=== PATIENT | male | born 1965 | race Caucasian/White ===

== ENCOUNTER 2020-05-24 10:11 | Inpatient (IN) ==
--- NOTE | 2020-05-01 09:02 | PAT Medication Instructions ---
Medication Instructions Date of Service May 01, 2020 Home Medications cyanocobalamin (vitamin B-12) 1,000 mcg IM DIRECTED gabapentin 600 mg PO HS ibuprofen 600 mg PO BID PRN levothyroxine 200 mcg PO HS simvastatin 20 mg PO HS ASK your surgeon for instructions ibuprofen 600 mg PO BID PRN DO NOT take the morning of surgery cyanocobalamin (vitamin B-12) 1,000 mcg IM DIRECTED Take evening before surgery gabapentin 600 mg PO HS levothyroxine 200 mcg PO HS simvastatin 20 mg PO HS Other Notes If you have any questions please call us at [phone] or [phone] or [phone] or [phone]
--- NOTE | 2020-05-02 11:08 | Anesthesiology Consultation ---
Date of Service May 02, 2020 Assessment & Plan (1) Encounter for pre-operative examination: Per PAT assessment on 05/02: Travel screen- [facility] for grocery shopping. Wears mask. No known COVID-19 positive contacts. No current COVID-19 related symptoms. Surgeon arranging preop COVID testing. Awaiting results. Chart Review Chart Review: Acceptable Risk for Surgery and Patient seen in Pre Admission Testing Teaching & Discussion Pre-Anesthesia Teaching/Discussion Notes: Instructed NPO after midnight before surgery,except medications with 15 cc of water. Medication instructions provided according to the [facility] guidelines. History Surgery Operation Date: 05/24/20 07:45 Proposed Procedures p L3-L5 Decompression Fusion, Spinal Cord Monitoring - Patrice Braun, Height/Weight Height: 5 ft 8 in Weight: 119 kg Allergies Allergy/AdvReac Type Severity Reaction Status Date / Time No Known Allergies Allergy Verified 04/24/20 11:53 Medications Home Medications Medication Instructions Recorded Confirmed Last Taken cyanocobalamin (vitamin B-12) 1,000 mcg IM DIRECTED 04/24/20 04/24/20 Unknown gabapentin 600 mg PO HS 04/24/20 04/24/20 Unknown ibuprofen 600 mg PO BID PRN 04/24/20 04/24/20 Unknown levothyroxine 200 mcg PO HS 04/24/20 04/24/20 Unknown simvastatin 20 mg PO HS 04/24/20 04/24/20 Unknown Past Medical History Medical History Anemia no hx blood tranfusions Chronic back pain GERD (gastroesophageal reflux disease) controlled s/p Robe fundoplication/gastric bypass Hyperlipidemia Hypothyroidism Obesity Osteoarthritis Vocal cord dysfunction damage r/t chronic reflux Exercise / Class Metabolic Activity III < 4 Walking/Shop/Light housework Past Family History Family History Mother Diabetes Grandmother Diabetes Daughter Diabetes Past Surgical History Surgical History History of carpal tunnel release R/L History of colonoscopy History of endoscopic sinus surgery History of esophagogastroduodenoscopy (EGD) History of Robe fundoplication History of repair of hiatal hernia History of tooth extraction Hx of gastric bypass Hx of inguinal hernia repair R/L Hx of toe surgery BONE REMOVAL (FOOT/LITTLE TOE) Past Anesthesia History No Hx of Anesthesia Complications and No Family Hx of Anesthesia Complications History of PONV No Hx of PONV and No Hx of Motion Sickness Social History Smoking Status: Never smoker Do You Dip or Chew Tobacco: No Hx Alcohol Use: Yes Alcohol type: wine alcohol intake frequency: a few times a week Hx Substance Use: No substance use type: does not use Review of Systems Patient denies chest pain, shortness of breath, fever, chills, cough, wheezing, palpitations. Physical Exam Vital Signs VITALS BP 160/92 P 64 TEMP 98.7 SP02 95%RA RESP 18 PHYSICAL Full neck and c-spine range of motion. Full TMJ range of motion. TMD 3 finger breaths Mallampati Score 3 Dentition: upper partial Lungs: clear throughout to auscultation Cardiac: regular rate and rhythm, no murmurs noted Spine: normal Carotid arteries: negative bruit Extremities: no edema Testing Laboratory Results 05/02/20 11:41 05/02/20 11:41 PT 10.6 Seconds (9.0-12.0) 05/02/20 11:41 INR 1.0 (0.9-1.1) 05/02/20 11:41 APTT 26.3 Seconds (21.0-31.0) 05/02/20 11:41 Urine Color Yellow 05/02/20 11:41 Urine Appearance Clear (Clear) 05/02/20 11:41 Urine pH 5.5 (4.5-7.5) 05/02/20 11:41 Ur Specific [place] 1.022 (1.000-1.030) 05/02/20 11:41 Urine Protein Negative (Negative) 05/02/20 11:41 Urine Glucose (UA) Negative (Negative) 05/02/20 11:41 Urine Ketones Negative (Negative) 05/02/20 11:41 Urine Nitrite Negative (Negative) 05/02/20 11:41 Ur Leukocyte Esterase Negative (Negative) 05/02/20 11:41 Blood Type A Positive 05/02/20 11:41 Antibody Screen NEGATIVE 05/02/20 11:41 Electrocardiogram Date: 05/02/20 SR with occasional PVC's at 67bpm. unconfirmed report. Chest X-Ray Date: 05/02/20 FINDINGS: The cardiac and mediastinal contours are normal. There is no evidence of focal pulmonary consolidation. There is no evidence of failure. No pleural effusions are visualized.[There is a 4 mm calcified granuloma within the left upper lung zone. IMPRESSION: No active disease in the chest.
--- NOTE | 2020-05-02 12:24 | XRay Report ---
XR chest Pre-admission PA/Lat CLINICAL HISTORY: Preoperative chest COMPARISON STUDY: No previous studies for comparison. FINDINGS: The cardiac and mediastinal contours are normal. There is no evidence of focal pulmonary co nsolidation. There is no evidence of failure. No pleural effusions are visualized.[There is a 4 mm ca lcified granuloma within the left upper lung zone. IMPRESSION: No active disease in the chest. ACT 112: Negative or not required by law. Electronically signed by: Osiel Danielson M.D. 05/02/2020 12:23 PM
[2020-05-02 12:27] LABS: Basophils # (auto) 0.01 K/uL (0-0.2); Basophils % (auto) 0.1 %; Eosinophils # (auto) 0.14 K/uL (0-0.5); Hematocrit (blood only) 45.5 % (42-52); Hemoglobin 14.8 g/dL (14.0-18.0); Immature Granulocytes # (auto) 0.02 K/uL (0.00-0.02); Immature Granulocytes % (auto) 0.3 %; Lymphocytes # (auto) 2.37 K/uL (1.2-3.4); Lymphocytes % (auto) 34.6 %; Mean Corpuscular Hemoglobin 28.9 pg (25-34); Mean Corpuscular Hgb Conc 32.5 g/dL (32-36); Mean Corpuscular Volume 88.9 fL (80-100); Mean Platelet Volume 9.6 fL (7.4-10.4); Monocytes # (auto) 0.54 K/uL (0.11-0.59); Monocytes % (auto) 7.9 %; Neutrophils # (auto) 3.77 K/uL (1.4-6.5); Neutrophils % (auto) 55.1 %; Platelet Count 269 K/uL (130-400); RDW Coefficient of Variation 14.5 % (11.5-14.5); RDW Standard Deviation 47.3 fL (36.4-46.3); Red Blood Count 5.12 M/uL (4.7-6.1); White Blood Count 6.85 K/uL (4.8-10.8)
[2020-05-02 12:28] LABS: Appearance Urine Clear (Clear); Bilirubin Urine Negative (Negative); Blood Urine Negative (Negative); Color Urine Yellow; Glucose Urine UA Negative (Negative); Ketones Urine Negative (Negative); Leukocyte Esterase Urine Negative (Negative); Nitrite Urine Negative (Negative); Protein Urine Negative (Negative); Specific Gravity Urine 1.022 (1.000-1.030); Urobilinogen Urine Negative (Negative); pH Urine 5.5 (4.5-7.5)
[2020-05-02 12:36] LABS: Partial Thromboplastin Ratio 0.9; Partial Thromboplastin Time 26.3 Seconds (21.0-31.0); Prothrombin Time 10.6 Seconds (9.0-12.0)
[2020-05-02 12:51] LABS: BUN Creatinine Ratio 13.8 (10-20); Calcium 9.5 mg/dl (8.5-10.1); Creatinine Clr Calc Pharmacy 104.8 ml/min; Est GFR (African American) 97.3; Est GFR (Non-African American) 83.9; Potassium 4.5 mmol/L (3.5-5.1)
--- NOTE | 2020-05-04 08:37 | Electrocardiogram Report ---
Test Reason : Blood Pressure : / mmHG Vent. Rate : 067 BPM Atrial Rate : 067 BPM P-R Int : 140 ms QRS Dur : 114 ms QT Int : 420 ms P-R-T Axes : 050 060 022 degrees QTc Int : 443 ms Sinus rhythm with occasional Premature ventricular complexes Otherwise normal ECG No previous ECGs available Confirmed by Jalen Hines ([id number]) on 05/04/2020 8:37:25 AM Referred By: Patrice Braun Confirmed By:Jalen Hines
[~2020-05-24 10:11] MED LIST: ACETAMINOPHEN 500 MG TAB PO SCH; CEFAZOLIN 2000MG 2,000 MG/15 ML SYR IV SCH; CeleBREX 200 MG CAP PO SCH; DEXAMETHASONE SOD INJ 4 MG/ML VIAL ONE; GABAPENTIN 900 MG DOSE PO SCH; GLYCOPYRROLATE 0.2 MG/ML VIAL ONE; LIDOCAINE HCL 2% 2 ML VIAL/AMP(20MG/ML) INFIL ONE; LR 15ML/HR IV SCH; MIDAZOLAM HCL 1 MG/ML 2ML VIAL ONE; NEOSTIGMINE METHYLSULFATE 1 MG/ML 10ML VIAL ONE; ONDANSETRON INJ 2 MG/ML 2 ML VIAL ONE; PROPOFOL IV EMULSION 10 MG/ML 20 ML VIAL IV ONE; fentaNYL citrate 100 MCG/2 ML VIAL ONE
--- NOTE | 2020-05-24 11:22 | History & Physical Bridge Note ---
Date of Service May 24, 2020 History & Physical Bridge Note I have examined the patient, reviewed the History & Physical and in the interval since the performance of the History & Physical I have noted the following changes of clinical significance: no changes noted
--- NOTE | 2020-05-24 11:24 | History & Physical Report ---
Date of Service May 24, 2020 Assessment & Plan (1) Neurogenic claudication due to lumbar spinal stenosis: Admission and Anticipated Discharge Date Admission Date: L3 L5 decompression fusion History of Present Illness Chief Complaint: Back and leg pain Primary Care Provider: NO PCP This is a 54-year-old male that presents with worsening back and bilateral leg pain. After failing a course of nonoperative care is here for surgical intervention. Allergies Allergy/AdvReac Type Severity Reaction Status Date / Time No Known Allergies Allergy Verified 05/24/20 10:39 Home Medications Home Medications Medication Instructions Recorded Confirmed Type cyanocobalamin (vitamin B-12) 1,000 mcg IM DIRECTED 04/24/20 05/24/20 History gabapentin 600 mg PO HS 04/24/20 05/24/20 History ibuprofen 600 mg PO BID PRN 04/24/20 05/24/20 History levothyroxine 200 mcg PO HS 04/24/20 05/24/20 History simvastatin 20 mg PO HS 04/24/20 05/24/20 History Past Med/Surg History Medical History Anemia no hx blood tranfusions Chronic back pain GERD (gastroesophageal reflux disease) controlled s/p Robe fundoplication/gastric bypass Hyperlipidemia Hypothyroidism Obesity Osteoarthritis Vocal cord dysfunction damage r/t chronic reflux Surgical History History of carpal tunnel release R/L History of colonoscopy History of endoscopic sinus surgery History of esophagogastroduodenoscopy (EGD) History of Robe fundoplication History of repair of hiatal hernia History of tooth extraction Hx of gastric bypass Hx of inguinal hernia repair R/L Hx of toe surgery BONE REMOVAL (FOOT/LITTLE TOE) Family History Mother Diabetes Grandmother Diabetes Daughter Diabetes Social History Smoking Status: Never smoker Second Hand Exposure: Yes; Do You Dip or Chew Tobacco: No; Tobacco Cessation Education Requested by Patient: No Hx Alcohol Use: Yes Alcohol type: wine Hx Substance Use: No Preferred Language: Icelandic Communication Ability: Effective Scenery Builder Required: No Beliefs That Will Affect Care: None Current Living Situation: Spouse Other Information That Helps Us Care for You: No Feels Safe at Home: Yes Safety Concerns: Feels Safe At This Time Physical Exam Physical Exam: Patient is alert and oriented neurologically intact. Heart regular rate and rhythm. Lungs clear to auscultation. Results & Data ([facility]) Vital Signs (Past 12 Hours) Vital Signs Temp Pulse Resp BP Pulse Ox 05/24/20 10:48 37.1 C 88 18 139/82 96
[2020-05-24] MEDS ORDERED: BACITRACIN INJ 50,000 UNIT VIAL ONE (11:29)
[2020-05-24] MEDS ORDERED: BUPIVACAINE/EPINEPHRINE 0.25% 1:200,000 30 ML VIAL ONE (11:29)
[2020-05-24] MEDS ORDERED: fentaNYL citrate 100 MCG/2 ML VIAL IV PRN (11:30)
[2020-05-24] MEDS ORDERED: ONDANSETRON INJ 2 MG/ML 2 ML VIAL IV PRN ×2 (11:30→15:51)
[2020-05-24] MEDS ORDERED: ePHEDrine sulfate 50 MG/ML AMP IV PRN (11:30)
[2020-05-24] MEDS ORDERED: ATROPINE SULFATE 0.1 MG/ML 10ML SYR IV PRN (11:30)
[2020-05-24] MEDS ORDERED: HYDROmorphone INJ 2 MG/ML SYR/VIAL ONE (12:04)
[2020-05-24] MEDS ORDERED: ROCURONIUM BROMIDE 10 MG/ML 5 ML VIAL IV ONE (13:13)
[2020-05-24] MEDS ORDERED: FLOSEAL HEMOSTATIC MATRIX 10ML TOP ONE (14:05)
--- NOTE | 2020-05-24 14:26 | Operative Report ---
Post Operative Report Pre & Post Diagnosis Operation Date: 05/24/20 11:25 Pre-Op Diagnosis: Spinal Stenosis, Lumbar Region with Neurogenic Claudication Spondylolisthesis L3-4, L4-5. Obesity Post-Op Diagnosis: Same I identified the patient and participated in the time-out.: Yes Procedure Operation Date: 05/24/20 11:25 Actual Procedures #1 lumbar decompression with bilateral medial facetectomies and foraminotomies L2-3, L3-4 and L4-L5. #2 posterior spinal fusion L3-4 L4-5 per #3 placement posterior instrumentation L3-4 L4-5. #4 interbody fusion L3-4 and L4-5. #5 placement of titanium 12 x 26 mm cage at L3-4 and 14 x 26 mm cage at L4-5. #6 placement locally harvested morselized autograft in the posterior gutters. #7 placement infuse collagen sponge, master graft and posterior gutters and ostial amp interbody space. Surgeon Patrice Braun, DO Family Court Counsellor Vidya Cameron Estimated Blood Loss 400 Findings See Below Patient is 5 foot 8 inches tall weighing over 116 kg with a BMI in excess of 39. The patient's body habitus did add significant technical difficulty requiring her deepest retractors and longus instruments in order to perform this procedure. This added at least 50% increase to the operative time. Specimens None Indications This is a 54-year-old male who presents above-mentioned diagnosis after failed extensive course of nonoperative care is here for the above-mentioned procedure. Description of Procedure Patient was met with identified informed consent obtained. Patient was then taken to the operative suite underwent an patient placed in a prone position the Alvarez table on top Krzysztof frame. All bony prominences well-padded eyes inspected to ensure no external pressure placed upon them. This point the lumbar spine was prepped and draped in a sterile fashion. Sharp dissection with the assistance of Bovie cautery was performed down to and exposing the lamina and transverse processes of L3-L4-L5 bilaterally. From a caudal to cephalad fashion complete laminectomy of L4 L3 and postlaminectomy of L2 was performed including bilateral medial facetectomies and foraminotomies addressing severe spinal stenosis. Pedicle screws were then placed in L3-L4 and L5 bilaterally with assistance of fluoroscopy and the proper sized marie placed. By way of a trans-foraminal approach on the right a complete discectomy was performed endplates coated to subcortical bleeding bone and a 14 x 26 mm titanium cage filled osteo-bone graft tapped in position. Then proceeded to L3-[address] of a transforaminal approach on the right discectomy was performed endplates coated to subcortical bleeding bone and a 12 x 26 mm titanium cage filled with osteo-bone graft tapped in position. Rods were then compressed locked into final position bilaterally. The transverse processes of L3-L4-L5 bur to subcortical bleeding bone. Infuse collagen sponge master graft of autograft was placed in the posterior lateral gutters. 15 round HU drain inserted. The incision was then closed with 1 Vicryl the fascia 2-0 Vicryl subcutaneously and 4 Monocryl for final skin closure. Steri-Strip sterile dressings placed. Patient waken taken PACU stable condition. Please note spinal cord monitoring was utilized at the procedure no changes noted. Lastly Vidya Cameron was present at the entire procedure involved in patient positioning complex portions of the surgery and final skin closure. I attest to the content of the Intraoperative Record and any orders documented therein. Any exceptions are noted below.
--- NOTE | 2020-05-24 14:53 | Fluoroscopy Report ---
LUMBAR SPINE, INTRAOPERATIVE FLUOROSCOPY HISTORY: L3 L5 decompression and fusion. FLUOROSCOPY TIME: 18.8 seconds. FINDINGS: Intraoperative fluoroscopy was provided for the lumbar spine. 2 fluoroscopic spot images we re obtained. Posterior decompression and fusion from L3 to L5 with pedicle screws and rods. IMPRESSION: Fluoroscopy provided for a L3-L5 posterior decompression and fusion. ACT 112: Negative or not required by law. Electronically signed by: Albino Menon M.D. 05/24/2020 2:52 PM
[2020-05-24] MEDS ORDERED: fentaNYL citrate 100 MCG/2 ML VIAL ONE (15:09)
[2020-05-24] MEDS ORDERED: FAMOTIDINE 20 MG TAB PO PRN (15:51)
[2020-05-24] MEDS ORDERED: SOD PHOSPHATE/SOD BIPHOSPHATE ENEMA 132 ML BTL PR PRN (15:51)
[2020-05-24] MEDS ORDERED: HYDROmorphone INJ 0.5 MG/0.5 ML SYR IV PRN (15:51)
[2020-05-24] MEDS ORDERED: DO NOT ADMINISTER PNEUMOCOCCAL VACCINE PRN (15:51)
[2020-05-24] MEDS ORDERED: ACETAMINOPHEN 500 MG TAB PO PRN (15:51)
[2020-05-24] MEDS ORDERED: ONDANSETRON 4 MG OD TAB PO PRN (15:51)
[2020-05-24] MEDS ORDERED: NON-FORMULARY MEDICATION (Cyanocobalamin (Vitamin B-12) 1,000 MCG) IM SCH (15:51)
[2020-05-24] MEDS ORDERED: PROMETHAZINE HCL 12.5 MG in SODIUM CHLORIDE 0.9% 50 ML IV PRN (15:51)
[2020-05-24] MEDS ORDERED: ALUMINUM/MAGNESIUM SUSP 30 ML UDC PO PRN (15:51)
[2020-05-24] MEDS ORDERED: METOCLOPRAMIDE HCL INJ 5 MG/ML 2 ML VIAL IV PRN (15:51)
[2020-05-24] MEDS ORDERED: MAGNESIUM HYDROXIDE SUSP 30 ML UDC PO PRN (15:51)
[2020-05-24] MEDS ORDERED: DO NOT ADMINISTER FLU VACCINE PRN (15:51)
[2020-05-24] MEDS ORDERED: TRAMADOL HCL 50 MG TABLET PO PRN (15:51)
[2020-05-24] MEDS ORDERED: bisacodyL 10 MG SUPP PR PRN (15:51)
[2020-05-24] MEDS ORDERED: ACETAMINOPHEN 1,000 MG/100 ML VIAL IV PRN (15:51)
[2020-05-24] MEDS ORDERED: HYDROmorphone INJ 1 MG/ML SYRINGE IV PRN (15:51)
[2020-05-24] MEDS ORDERED: LORazepam 0.5 MG/1 ML VIAL IV PRN (15:51)
[2020-05-24] MEDS ORDERED: NALOXONE HCL 0.4 MG/1 ML VIAL/CARP IV PRN (15:51)
--- NOTE | 2020-05-24 15:53 | Anesthesiology Progress Note ---
Date of Service May 24, 2020 Anesthesia Post Procedure Vital Signs Vital Signs: Temp Pulse Pulse Resp BP Pulse Ox 05/24/20 15:35 88 12 133/89 97 05/24/20 15:25 98.4 F 83 12 131/92 97 05/24/20 15:15 72 12 135/89 96 05/24/20 15:05 82 12 138/94 97 05/24/20 14:55 81 12 160/84 H 97 05/24/20 14:46 98.8 F 94 H 13 158/97 H 96 05/24/20 10:48 98.8 F 88 18 139/82 96 Pain Intensity Left Leg: Pain Intensity: 6 Back: Pain Intensity: 4 Transfer of Care Handoff Completed per policy Notes Mental Status: alert / awake / arousable and participated in evaluation Patient Amnestic to Procedure: Yes Nausea / Vomiting: adequately controlled Pain: adequately controlled Airway Patency, RR, SpO2: stable & adequate BP & HR: stable & adequate Hydration State: stable & adequate Anesthetic Complications: no major complications apparent and Pt Satisfied with anesthetic care
[2020-05-24] MEDS: LACTATED RINGER'S 1,000 ML IV SCH ×2 (16:15→22:35)
[2020-05-24] MEDS: KETOROLAC 30 MG/ML VIAL IV SCH ×2 (17:27→23:17)
[2020-05-24] MEDS: CEFAZOLIN 2000MG 2,000 MG/15 ML SYR IV SCH (17:28)
[2020-05-24] MEDS ORDERED: NON-FORMULARY MEDICATION (Diphenhydramine-Acetaminophen [Tylenol Pm Extra Strength] 1 TAB) PO SCH (21:00)
[2020-05-24] MEDS: GABAPENTIN 300 MG CAP PO SCH (21:05)
[2020-05-24] MEDS: LEVOTHYROXINE SODIUM 200 MCG TABLET PO SCH (21:05)
[2020-05-24] MEDS: DOCUSATE SODIUM/SENNA 50/8.6MG TAB PO SCH (21:05)
[2020-05-24] MEDS: SIMVASTATIN 20 MG TAB PO SCH (21:05)
[2020-05-24] MEDS: LORazepam 0.5 MG TAB PO PRN (22:38)
[2020-05-25] MEDS: CEFAZOLIN 2000MG 2,000 MG/15 ML SYR IV SCH (02:20)
[2020-05-25] MEDS: KETOROLAC 30 MG/ML VIAL IV SCH ×2 (05:50→11:31)
[2020-05-25] MEDS: POLYETHYLENE (MIRALAX) 17 GM PACK PO SCH ×4 (05:50→22:59)
[2020-05-25 05:56] LABS: Basophils # (auto) 0.01 K/uL (0-0.2); Basophils % (auto) 0.1 %; Eosinophils # (auto) 0.01 K/uL (0-0.5); Eosinophils % (auto) 0.1 %; Hematocrit (blood only) 37.9 % (42-52); Hemoglobin 12.1 g/dL (14.0-18.0); Immature Granulocytes # (auto) 0.03 K/uL (0.00-0.02); Immature Granulocytes % (auto) 0.2 %; Lymphocytes # (auto) 1.51 K/uL (1.2-3.4); Lymphocytes % (auto) 10.7 %; Mean Corpuscular Hemoglobin 28.7 pg (25-34); Mean Corpuscular Hgb Conc 31.9 g/dL (32-36); Mean Platelet Volume 9.1 fL (7.4-10.4); Monocytes # (auto) 1.12 K/uL (0.11-0.59); Monocytes % (auto) 7.9 %; Neutrophils # (auto) 11.46 K/uL (1.4-6.5); Platelet Count 248 K/uL (130-400); RDW Coefficient of Variation 13.8 % (11.5-14.5); RDW Standard Deviation 45.1 fL (36.4-46.3); Red Blood Count 4.21 M/uL (4.7-6.1); White Blood Count 14.14 K/uL (4.8-10.8)
[2020-05-25] MEDS: LACTATED RINGER'S 1,000 ML IV SCH (06:28)
[2020-05-25 06:37] LABS: BUN Creatinine Ratio 15.4 (10-20); Calcium 8.7 mg/dl (8.5-10.1); Creatinine Clr Calc Pharmacy 107.7 ml/min; Est GFR (African American) 102.2; Est GFR (Non-African American) 88.1; Potassium 4.5 mmol/L (3.5-5.1)
--- NOTE | 2020-05-25 17:45 | Orthopedic Progress Note ---
Date of Service May 25, 2020 Assessment & Plan (1) Neurogenic claudication due to lumbar spinal stenosis: Admission and Anticipated Discharge Date Admission Date: May 24, 2020 This time we will continue physical therapy monitor his HU output anticipate dis charge home in the next few days. Subjective Back pain controlled leg pain improved. Physical Exam Physical Exam: Patient is good strength testing appears comfortable. Results & Data ([facility]) Vital Signs (Past 12 Hours) Vital Signs Temp Pulse Resp BP BP Pulse Ox 05/25/20 15:25 36.9 C 79 20 138/76 97 05/25/20 07:39 36.9 C 85 17 132/74 95
[2020-05-25] MEDS: OXYCODONE HCL IR 5 MG TAB (IMMEDIATE RELEASE) PO PRN (19:36)
[2020-05-25] MEDS: GABAPENTIN 300 MG CAP PO SCH (21:25)
[2020-05-25] MEDS: LEVOTHYROXINE SODIUM 200 MCG TABLET PO SCH (21:25)
[2020-05-25] MEDS: DOCUSATE SODIUM/SENNA 50/8.6MG TAB PO SCH (21:26)
[2020-05-25] MEDS: SIMVASTATIN 20 MG TAB PO SCH (21:26)
[2020-05-25] MEDS: LORazepam 0.5 MG TAB PO PRN (23:03)
[2020-05-26] MEDS: OXYCODONE HCL IR 5 MG TAB (IMMEDIATE RELEASE) PO PRN ×4 (03:27→19:59)
[2020-05-26] MEDS: DEXAMETHASONE SOD PHOSPHATE 8 MG in SYRINGE 0 ML IV SCH (08:05)
--- NOTE | 2020-05-26 13:23 | Orthopedic Progress Note ---
Date of Service May 26, 2020 Assessment & Plan (1) Neurogenic claudication due to lumbar spinal stenosis: Admission and Anticipated Discharge Date Admission Date: May 24, 2020 This time we will continue physical therapy monitor his HU output hopefully disc harge home tomorrow. Subjective Back pain controlled leg pain improved Physical Exam Physical Exam: Patient has good strength testing appears comfortable. Results & Data ([facility]) Vital Signs (Past 12 Hours) Vital Signs Temp Pulse Resp BP Pulse Ox 05/26/20 06:34 37.3 C 78 14 104/68 95
[2020-05-26] MEDS: DOCUSATE SODIUM/SENNA 50/8.6MG TAB PO SCH (19:59)
[2020-05-26] MEDS: LEVOTHYROXINE SODIUM 200 MCG TABLET PO SCH (20:00)
[2020-05-26] MEDS: GABAPENTIN 300 MG CAP PO SCH (20:00)
[2020-05-26] MEDS: SIMVASTATIN 20 MG TAB PO SCH (20:00)
[2020-05-26] MEDS: LORazepam 0.5 MG TAB PO PRN (21:43)
[2020-05-27] MEDS: OXYCODONE HCL IR 5 MG TAB (IMMEDIATE RELEASE) PO PRN ×2 (02:57→10:23)
[2020-05-27] MEDS: DEXAMETHASONE SOD PHOSPHATE 8 MG in SYRINGE 0 ML IV SCH (09:01)
--- NOTE | 2020-05-27 09:51 | Discharge Summary ---
Date of Service May 27, 2020 Admission HPI Per Admitting Provider This is a 54-year-old male that presents with worsening back and bilateral leg pain. After failing a course of nonoperative care is here for surgical intervention. Principal Diagnosis Lumbar spinal stenosis with neurogenic claudication Discharge Data Allergies Allergy/AdvReac Type Severity Reaction Status Date / Time No Known Allergies Allergy Verified 05/24/20 10:39 Consultations 05/24/20 15:51 Consult Case Management - Discharge Planning Routine Procedures Performed Operation Date: 05/24/20 11:25 Actual Procedures p L3-L5 Decompression Fusion, Spinal Cord Monitoring, Application of Bone Morphogenetic Protein and Allograft, Placement of Interbody at L3-L4, L4-L5 - Patrice Braun DO Ordered Studies 05/24/20 11:25 FL fluoroscopy <1hr Routine FL lumbar spine 2-3V Routine Hospital Course (1) Neurogenic claudication due to lumbar spinal stenosis: Patient underwent multilevel lumbar decompression fusion tolerated this well was taken to orthopedic for possibly. Postop day 1 he was up and ambulating rest the postop day #2 on postop day #3 HU drain was decreasing pain well controlled. Excellent strength testing. Subsequently discharged home. Discharge orders and instructions from the chart for further review. Total Time Total Time Spent Total Time Spent (In Minutes): 20 minutes Discharge Plan Discharge Items Patient Disposition: Home - Self-Care Reason For Visit: Spinal Stenosis, Lumbar Region with Neurogenic Cla Discharge Diagnosis: Lumbar spinal stenosis with neurogenic claudication Activity: As commented below Non-emergency contact: Primary Care Provider Call non-emergency contact if: you have any medication questions Follow-up/Referrals: PCP,NO [Primary Care Provider] - Diet: Regular Addtl Attending Provider Instructions: ACTIVITY RECOMMENDATIONS: SELF CARE INSTRUCTIONS AFTER THORACIC/LUMBAR FUSIONS 1. You may walk to your tolerance. It is good exercise for your legs and back. Expect some back and intermittent leg aches and pains. 2. You may perform "counter-top" level activities (make a sandwich, elder with a project, etc.). 3. No bending or lifting of more than 10 pounds or back twisting of any nature (roll like a log when turning in bed). 4. You may ride in a car for 20-30 minutes at a time. No driving until after your first visit with your doctor. 5. Frequent changes of position and restricting sitting to 30 minutes at a time will help limit the amount of back spasms and stiffness you may experience. 6. You may discontinue the use of ambulatory aids (cane, crutches, etc.) once your strength and confidence allow. 7. You may mannequin maker the shower and let water strike your incision when you arrive home at least once daily. Do not take a tub bath, sit in a hot tub or go into a swimming pool until after your first recheck in the office. SPECIAL CARE INSTRUCTIONS: VERY IMPORTANT TO READ AND REVIEW A. Your surgical incision has been closed with a cosmetic suture under the skin that will dissolve in about 6 weeks. In 14 days, you can use a pair of clean scissors and cut the suture that is left outside of the skin at the ends of your incision. 1. The small skin tapes can be removed 7 days after surgery if they have not fallen off by that point. 2. You may keep the wound open to air as much as possible to promote healing after post-op day number 5 unless told otherwise by your doctor. 3. If you think the wound looks like it is becoming infected (redness or worsening drainage) and/or you are experiencing fever, chill or worsening back pain and muscle spasms, contact the office so that we may evaluate you as soon as possible. B. Complications are uncommon, but please contact us if you have any signs or symptoms of: 1. wound infection (fever higher than 102.5 degrees F, redness, separation of wound, drainage, or increasing pain from the incision) 2. blood clots in legs (pain, swelling, redness and warmth in legs) 3. urinary tract infection (fever higher than 102.5 degrees F, burning upon urination or increased frequency of urination) 4. nerve problems (inability to walk on your toes or heels, numbness, loss of bowel or bladder control) 5. any other symptoms that concern you C. Please call the office at if you have any concerns or questions about your operation or recovery. D. No smoking! Smoking drastically decreases the chance of a solid fusion. E. Do not take any anti-inflammatory medications (Indocin, Advil, Motrin, Aspirin, Naprosyn, etc.) as these may inhibit the chance of a solid fusion. Tylenol is okay to take for pain. MANAGING PAIN AFTER SPINAL SURGERY 1. Narcotic medication is intended for short-term use and will be provided for surgical pain. Surgical pain usually lasts for a period of 4-6 weeks. Narcotic medication includes Percocet, Vicodin, Darvocet, Tylenol #3 or Lortab. 2. Longer-term pain is more appropriately treated with non-narcotic medication such as Tylenol ES. 3. Muscle spasm is not appropriately treated with narcotics. Muscle relaxers such as Soma, Flexeril or Skelaxin can be used along with Tylenol ES. 4. Remember that we all live with some "aches and pains". This is not unusual or uncommon after an injury or as we get older. a. Back pain is expected and may include muscle spasms for 4 to 6 weeks after surgery. The pain should gradually improve. If the pain worsens for no apparent reason, please contact the office. b. Intermittent leg pain may also be experienced and should not be concerned about unless it worsens for no apparent reason. If so, please contact the office. 5. We will provide appropriate medication within the normal guidelines of their prescribed use. We will also be very cautious and aware of potential abuse and extended duration of patients' medication needs. a. Pain medications are for your comfort and to assist with sleep and rest so that the tissue can heal. They are not provided in order to return to normal activity and should not be used through the day. To do so or worsening pain at night can result from ongoing tissue damage and development of tolerance to the prescribed medicine. 6. Please allow 2-3 days to process refills. Prescriptions will not be mailed but must be picked up at the office. FOLLOW UP VISIT: Keep your scheduled follow-up appointment. Any questions, please call the office at . Pending Studies at Discharge: No Stand-Alone Forms: [employer], Smoking Cessation Medications and DC Order Prescriptions: New tramadol 50 mg tablet 50 mg PO Q6H PRN (Reason: pain, moderate) Qty: 20 RF: 0 oxycodone 5 mg tablet 5 mg PO Q6H PRN (Reason: pain, severe) Qty: 20 RF: 0 Continued simvastatin 20 mg Tablet 20 mg PO HS RF: 0 gabapentin 300 mg Capsule 600 mg PO HS RF: 0 levothyroxine 200 mcg Tablet 200 mcg PO HS RF: 0 cyanocobalamin (vitamin B-12) 1,000 mcg/mL Kit 1,000 mcg IM DIRECTED RF: 0 diphenhydramine-acetaminophen [Tylenol PM Extra Strength] 25-500 mg Tablet 1 tab PO HS RF: 0 Discontinued ibuprofen 600 mg Tablet 600 mg PO BID PRN (Reason: Pain) RF: 0 Discharge Orders: Discharge Order (Routine); Ordered 05/27/20 Ordered By: Patrice Braun Admission Data Admit Date/Time: 05/24/20 14:51 Attending Provider: Patrice Braun Admit Provider: Patrice Braun Primary Care Provider: PCP,HERIBERTO
== END 2020-05-27 13:28 | disposition home or self-care (01) | DRG 455 ==
LOC: ASU 10:11 → 3E 14:51

== ENCOUNTER 2021-04-04 06:15 | Observation (INO) ==
--- NOTE | 2021-03-09 13:34 | PAT Medication Instructions ---
Medication Instructions Date of Service March 09, 2021 Home Medications cyanocobalamin (vitamin B-12) 1,000 mcg IM DIRECTED gabapentin 600 mg PO HS PRN levothyroxine 200 mcg PO HS simvastatin 20 mg PO HS diphenhydramine-acetaminophen [Tylenol PM Extra Strength] 1 tab PO HS amlodipine 10 mg PO QAM cholecalciferol (vitamin D3) [Vitamin D3] 50 mcg PO HS Continue as directed cyanocobalamin (vitamin B-12) 1,000 mcg IM DIRECTED Take morning of surgery With a small sip of water, OTHERWISE NOTHING TO EAT OR DRINK AFTER MIDNIGHT: amlodipine 10 mg PO QAM Take evening before surgery gabapentin 600 mg PO HS PRN (if needed) levothyroxine 200 mcg PO HS simvastatin 20 mg PO HS diphenhydramine-acetaminophen [Tylenol PM Extra Strength] 1 tab PO HS cholecalciferol [Vitamin D3] 50 mcg PO HS Other Notes If you have any questions please call us at [phone] or [phone] or [phone] or [phone]
--- NOTE | 2021-03-12 11:18 | Anesthesiology Consultation ---
Date of Service March 12, 2021 Assessment & Plan (1) Encounter for pre-operative examination: COVID Status: As of 03/12 assessment, patient denies travel to endemic area, known exposure/sick contacts, or symptoms of COVID19. Patient advised to adhere to social distancing guidelines, wear a mask in public and avoid large crowds or unnecessary travel in the 2 weeks leading up to surgery. Traveling to [place] to [facility] with family, will return on 03/24. Preoperative COVID19 testing to be completed prior to surgery per surgeon's arrangements. Patient encouraged to be extra cautious/conscientious with COVID precautions between COVID testing and surgery. Chart Review Chart Review: Acceptable Risk for Surgery and Patient seen in Pre Admission Testing Teaching & Discussion Instructed NPO after midnight before surgery, except medications with 15 cc of water. Medication instructions provided according to the PAT guidelines. History Surgery Operation Date: 04/04/21 10:05 Proposed Procedures p C5-C7 Anterior Cervical Discectomy and Fusion, Spinal Cord Monitoring - Patrice Braun, Height/Weight Height: 5 ft 8 in Weight: 115.7 kg Allergies Allergy/AdvReac Type Severity Reaction Status Date / Time No Known Allergies Allergy Verified 03/07/21 12:59 Medications Home Medications Medication Instructions Recorded Confirmed Last Taken cyanocobalamin (vitamin B-12) 1,000 mcg IM DIRECTED 04/24/20 03/07/21 Unknown gabapentin 600 mg PO HS PRN 04/24/20 03/07/21 05/23/20 20:00 levothyroxine 200 mcg PO HS 04/24/20 03/07/21 05/23/20 22:00 simvastatin 20 mg PO HS 04/24/20 03/07/21 05/23/20 22:00 diphenhydramine-acetaminophen 1 tab PO HS 05/24/20 03/07/21 05/23/20 22:00 [Tylenol PM Extra Strength] amlodipine 10 mg PO QAM 03/07/21 03/07/21 Unknown cholecalciferol (vitamin D3) 50 mcg PO HS 03/07/21 03/07/21 Unknown [Vitamin D3] Past Medical History Medical History Anemia Chronic back pain GERD (gastroesophageal reflux disease) History of COVID-19 09/09/21 (SYMPTOMS>CHILLS/HEADACHE/NAUSEA/ALL OVER BODY ACHES). Had persistent episodes of 'heart racing' for a few weeks after COVID, but all symptoms have now resolved. Hyperlipidemia Hypertension Hypothyroidism Obesity Osteoarthritis Racing heart beat Pt had issues with heart racing/palpitations for a while after having COVID in 09/2020. Was seen by cardio for echo/Holter, workup unremarkable and it has not had symptoms for past two months Vocal cord dysfunction damage r/t chronic reflux Exercise / Class Metabolic Activity II 4-5 Yardwork/Stairs/Walk up hill (Denies CP or SOB with 1 FOS) Past Family History Family History Mother Diabetes Family history of diabetes mellitus Grandmother Diabetes Daughter Diabetes Family history of diabetes mellitus Grandmother (Maternal) Family history of diabetes mellitus Other No family history of adverse response to anesthesia Past Surgical History Surgical History Fusion of spine LUMBAR History of carpal tunnel release RT/LEFT History of colonoscopy History of endoscopic sinus surgery History of esophagogastroduodenoscopy (EGD) History of Robe fundoplication History of repair of hiatal hernia History of tooth extraction Hx of gastric bypass Hx of inguinal hernia repair RT/LEFT Hx of toe surgery BONE REMOVAL (RT FOOT/LITTLE TOE) Past Anesthesia History No Hx of Anesthesia Complications and No Family Hx of Anesthesia Complications History of PONV No Hx of PONV and Hx of Motion Sickness (only if reading in the car) Social History Smoking Status: Never smoker Do You Dip or Chew Tobacco: No Hx Alcohol Use: Yes Alcohol type: wine alcohol intake frequency: a few times a week substance use type: does not use Review of Systems Pt denies any recent chest pain, shortness of breath, palpitations, cough, fever, URI, or uncontrolled acid reflux. Physical Exam Vital Signs BP: 132/84 P: 69bpm SPO2: 97% RA T: 97.9 F R: 16 ENMT Mouth: + dentures (partial upper denture) and + macroglossia; no chipped teeth and no loose teeth Thyromental Distance: > or= 3.5 Finger Breadths Mallampati Class: IV *hoarse voice Neck + thick neck; neck extension not limited Band-aid on L side of neck. Pt reports scratched neck on a briar while weeding. Respiratory normal respiratory effort, lungs clear to auscultation Cardiovascular Rate/Rhythm: regular rate and regular rhythm (with rare ectopic beat) Vessels: no carotid bruit Extremities: no edema Lab Results Anesthesia Preop Results Results Anesthesia Widget: WBC 6.99 K/uL (4.8-10.8) 03/12/21 Hgb 12.3 g/dL (14.0-18.0) L 03/12/21 Hct 39.8 % (42-52) L 03/12/21 Plt 361 K/uL (130-400) 03/12/21 Na 140 mmol/L (136-145) 03/12/21 K 3.9 mmol/L (3.5-5.1) 03/12/21 Cl 109 mmol/L (98-107) H 03/12/21 CO2 23 mmol/L (21-32) 03/12/21 BUN 13 mg/dl (7-18) 03/12/21 Creat 0.86 mg/dl (0.6-1.4) 03/12/21 Glucose Level 92 mg/dl (70-99) 03/12/21 PT 9.9 Seconds (9.0-12.0) 03/12/21 PTT 25.2 Seconds (21.0-31.0) 03/12/21 INR 1.0 (0.9-1.1) 03/12/21 Urine Color Yellow 03/12/21 Urine Appearance Clear (Clear) 03/12/21 Urine pH 5.0 (4.5-7.5) 03/12/21 Urine Specific [place] 1.024 (1.000-1.030) 03/12/21 Urine Protein Negative (Negative) 03/12/21 Urine Glucose (UA) Negative (Negative) 03/12/21 Urine Ketones Negative (Negative) 03/12/21 Urine Blood Negative (Negative) 03/12/21 Urine Nitrite Negative (Negative) 03/12/21 Urine Bilirubin Negative (Negative) 03/12/21 Urine Urobilinogen Negative (Negative) 03/12/21 Urine Leukocyte Esterase Negative (Negative) 03/12/21 Blood Type A Positive 03/12/21 Antibody Screen NEGATIVE 03/12/21 Testing Electrocardiogram Date: 05/02/20 Sinus rhythm at 67 bpm with occasional PVCs. Chest X-Ray Date: 05/02/20 Findings: + NAD Echocardiogram Date: 11/13/20 EF: 60% Left ventricular size is normal with normal wall thickness. Normal LV systolic function. Normal contractility of the wall segments. Normal diastolic function and normal left atrial pressure. Normal atria size. Normal RV size and function. Mild tricuspid regurgitation and mild pulmonic regurgitation. No pericardial effusion. Normal PA systolic pressure. The aortic root is normal. The ascending aorta is normal.
[~2021-04-04 06:15] MED LIST changes: -ACETAMINOPHEN 500 MG TAB PO SCH; -CEFAZOLIN 2000MG 2,000 MG/15 ML SYR IV SCH; -CeleBREX 200 MG CAP PO SCH; -DEXAMETHASONE SOD INJ 4 MG/ML VIAL ONE; -GABAPENTIN 900 MG DOSE PO SCH; -GLYCOPYRROLATE 0.2 MG/ML VIAL ONE; -LIDOCAINE HCL 2% 2 ML VIAL/AMP(20MG/ML) INFIL ONE; -MIDAZOLAM HCL 1 MG/ML 2ML VIAL ONE; -NEOSTIGMINE METHYLSULFATE 1 MG/ML 10ML VIAL ONE; -ONDANSETRON INJ 2 MG/ML 2 ML VIAL ONE; -PROPOFOL IV EMULSION 10 MG/ML 20 ML VIAL IV ONE; +ceFAZolin 2000MG 2,000 MG/15 ML SYR IV SCH; -fentaNYL citrate 100 MCG/2 ML VIAL ONE
[2021-04-04] MEDS: ACETAMINOPHEN 500 MG TAB PO SCH (06:48)
[2021-04-04] MEDS: GABAPENTIN 600 MG DOSE PO SCH (06:48)
[2021-04-04] MEDS: CeleBREX 200 MG CAP PO SCH (06:48)
[2021-04-04] MEDS ORDERED: ONDANSETRON INJ 2 MG/ML 2 ML VIAL ONE (06:57)
[2021-04-04] MEDS ORDERED: DEXAMETHASONE SOD INJ 4 MG/ML VIAL ONE (06:57)
[2021-04-04] MEDS ORDERED: LIDOCAINE 2% 2 ML VIAL/AMP(20MG/ML) INFIL ONE (06:57)
[2021-04-04] MEDS ORDERED: PROPOFOL IV EMULSION 10 MG/ML 20 ML VIAL IV ONE ×4 (06:57→09:20)
[2021-04-04] MEDS ORDERED: MIDAZOLAM HCL 1 MG/ML 2ML VIAL ONE (06:58)
[2021-04-04] MEDS ORDERED: fentaNYL citrate 100 MCG/2 ML VIAL ONE (06:58)
[2021-04-04] MEDS ORDERED: ePHEDrine sulfate 50 MG/ML AMP IV PRN (07:20)
[2021-04-04] MEDS ORDERED: PROMETHAZINE HCL 6.25 MG in SODIUM CHLORIDE 0.9% 50 ML IV PRN (07:20)
[2021-04-04] MEDS ORDERED: fentaNYL citrate 100 MCG/2 ML VIAL IV PRN (07:20)
[2021-04-04] MEDS ORDERED: ONDANSETRON INJ 2 MG/ML 2 ML VIAL IV PRN ×2 (07:20→11:14)
[2021-04-04] MEDS ORDERED: ATROPINE SULFATE 0.1 MG/ML 10ML SYR IV PRN (07:20)
[2021-04-04] MEDS ORDERED: HYDROmorphone INJ 2 MG/ML SYR/VIAL IV PRN (07:20)
--- NOTE | 2021-04-04 07:27 | History & Physical Bridge Note ---
Date of Service April 04, 2021 History & Physical Bridge Note I have examined the patient, reviewed the History & Physical and in the interval since the performance of the History & Physical I have noted the following changes of clinical significance: no changes noted
--- NOTE | 2021-04-04 07:28 | History & Physical Report ---
Date of Service April 04, 2021 Assessment & Plan (1) Cervical stenosis of spinal canal: Admission and Anticipated Discharge Date Admission Date: C5-C7 anterior cervical discectomy and fusion History of Present Illness Chief Complaint: Neck and arm pain Primary Care Provider: NO PCP This is a 55-year-old male presents with chronic persistent neck and arm pain after failed extensive course of nonoperative care is here for surgical invention. Allergies Allergy/AdvReac Type Severity Reaction Status Date / Time No Known Allergies Allergy Verified 03/07/21 12:59 Home Medications Medication Instructions Recorded Confirmed Type cyanocobalamin (vitamin B-12) 1,000 mcg IM DIRECTED 04/24/20 04/04/21 History gabapentin 600 mg PO HS PRN 04/24/20 04/04/21 History levothyroxine 200 mcg PO HS 04/24/20 04/04/21 History simvastatin 20 mg PO HS 04/24/20 04/04/21 History diphenhydramine-acetaminophen 1 tab PO HS 05/24/20 04/04/21 History [Tylenol PM Extra Strength] amlodipine 10 mg PO QAM 03/07/21 04/04/21 History cholecalciferol (vitamin D3) 50 mcg PO HS 03/07/21 04/04/21 History [Vitamin D3] Past Med/Surg History Medical History Anemia Chronic back pain GERD (gastroesophageal reflux disease) History of COVID-19 09/09/21 (SYMPTOMS>CHILLS/HEADACHE/NAUSEA/ALL OVER BODY ACHES). Had persistent episodes of 'heart racing' for a few weeks after COVID, but all symptoms have now resolved. Hyperlipidemia Hypertension Hypothyroidism Obesity Osteoarthritis Racing heart beat Pt had issues with heart racing/palpitations for a while after having COVID in 09/2020. Was seen by cardio for echo/Holter, workup unremarkable and it has not had symptoms for past two months Vocal cord dysfunction damage r/t chronic reflux Surgical History Fusion of spine LUMBAR History of carpal tunnel release RT/LEFT History of colonoscopy History of endoscopic sinus surgery History of esophagogastroduodenoscopy (EGD) History of Robe fundoplication History of repair of hiatal hernia History of tooth extraction Hx of gastric bypass Hx of inguinal hernia repair RT/LEFT Hx of toe surgery BONE REMOVAL (RT FOOT/LITTLE TOE) Family History Mother Diabetes Family history of diabetes mellitus Grandmother Diabetes Daughter Diabetes Family history of diabetes mellitus Grandmother (Maternal) Family history of diabetes mellitus Other No family history of adverse response to anesthesia Social History Smoking Status: Never smoker Second Hand Exposure: Yes ( A CHILD); Do You Dip or Chew Tobacco: No; Hx Alcohol Use: Yes Alcohol type: wine Preferred Language: [place]an Communication Ability: Effective Laborer Hoisting Required: No Beliefs That Will Affect Care: None marital status: Current Living Situation: Family Feels Safe at Home: Yes Safety Concerns: Feels Safe At This Time Assistive Devices: Glasses Assistive Devices Comment: PARTIAL UPPER PLATE Physical Exam Physical Exam: Patient is alert and oriented Heart regular in rhythm Lungs clear to auscultation Results & Data ([facility]) Vital Signs (Past 12 Hours) Vital Signs Temp Pulse Resp BP Pulse Ox 04/04/21 06:55 37.0 C 71 20 171/95 H 98
[2021-04-04] MEDS ORDERED: HYDROmorphone INJ 2 MG/ML SYR/VIAL ONE (08:20)
[2021-04-04] MEDS ORDERED: SUCCINYLCHOLINE 100MG/5ML SYR IV ONE (08:46)
[2021-04-04] MEDS ORDERED: ROCURONIUM BROMIDE 10 MG/ML 5 ML VIAL IV ONE (08:46)
[2021-04-04] MEDS ORDERED: PHENYLEPHRINE 100MCG/ML 5ML SYR ONE (09:16)
[2021-04-04] MEDS ORDERED: NEOSTIGMINE METHYLSULFATE 1 MG/ML 10ML VIAL ONE (09:19)
[2021-04-04] MEDS ORDERED: GLYCOPYRROLATE 0.2 MG/ML VIAL ONE (09:19)
--- NOTE | 2021-04-04 09:31 | Operative Report ---
Post Operative Report Pre & Post Diagnosis Operation Date: 04/04/21 07:45 Pre-Op Diagnosis: Cervical Stenosis of Spinal Canal Post-Op Diagnosis: Cervical Stenosis of Spinal Canal I identified the patient and participated in the time-out.: Yes Procedure Operation Date: 04/04/21 07:45 Actual Procedures #1 anterior cervical discectomy with bilateral foraminotomies C5-6 and C6-C7. #2 anterior cervical arthrodesis C5-6 and C6-7. #3 placement of 9 mm spiral cage filled with I factor at C5-6 and 10 mm at C6-C7. #4 application of renee plate and screws across C5-6 C6-7. Surgeon Patrice Braun, DO Tack Welder Vidya Cameron Estimated Blood Loss 10 Findings See Below Patient is 5 foot 8 inches tall weighing over 115 kg with a BMI in excess of 38. The patient's body habitus did create significant technical difficulty requiring her deeper retractors and longer instruments in order to perform his procedure. This had at least 50% increase to the operative time. Specimens None Indications This is a 55-year-old male who presents above-mentioned diagnosis after failing course of nonoperative care is here for the above-mentioned procedure. Description of Procedure Patient was met with identified informed consent obtained. Patient was then taken to the operative suite underwent a patient placed in spine position Alvarez table head Cantrell mill operator head. All bony prominences well-padded eyes inspected to ensure no external pressure placed upon the. This point the anterior cervical spine was prepped and draped in a sterile fashion. The assistance of fluoroscopy identified the C6 vertebral body and a transverse incision was placed along the right anterior aspect of the cervical spinal lines region. Sharp dissection with the assistance of bipolar electrocautery performed down to and exposing the anterior cervical spine from C5-C7. Several [address]. Then performed a complete discectomy of C5-C6 out to the uncovertebral's bilaterally. [place] distracting pins were lysed to assist in visualization. Removed all posterior annular fibers longitudinal ligament bilateral foraminotomies performed. Endplates were then burred to subcortical bleeding bone and 9 mm spiral cage filled I factor tapped in position. Then proceeded to C6-C7. Again complete discectomy performed out to the uncovertebral joints bilaterally. [place] distracting pins again utilized. Removed all posterior annular fibers longitudinal ligament bilateral foraminotomies performed. Endplates burred to subcortical being bone and a 10 mm spiral cage filled with I factor tapped in position. Distracting apparatus was removed all anterior osteophytes burred to a smooth cortical surface and a 5 complete screws applied with the assistance of fluoroscopy. The incision was then copiously irrigated explored to ensure no damage to surrounding structures remaining bleeding. 10 round HU drain inserted. The incision was then closed with 2 Vicryl in the fascia and 4 Monocryl for final skin closure. Steri-Strip sterile dressings placed. Patient will continue PACU stable condition. Please note spinal cord monitoring was utilized at the procedure no changes noted. Lastly Vidya Cameron was present at the entire surgery involved the patient positioning complex portions of the surgery and final skin closure. I attest to the content of the Intraoperative Record and any orders documented therein. Any exceptions are noted below.
[2021-04-04] MEDS ORDERED: FLOSEAL HEMOSTATIC MATRIX 10ML TOP ONE (09:33)
--- NOTE | 2021-04-04 09:45 | Fluoroscopy Report ---
FL cervical 2-3V CLINICAL HISTORY: C5-C7 ACDF COMPARISON STUDY: None. FLUOROSCOPY TIME: 13 seconds. FLUOROSCOPIC IMAGES: 3 FINDINGS: Fluoroscopy was provided during C5-C7 anterior discectomy and fusion. Hardware is intact. S ponge marker noted on the first 2 images is not evident on the final image obtained at 9:34 AM. Endot [place] tube is partially visualized. IMPRESSION: Fluoroscopy provided during C5-C7 anterior discectomy and fusion. ACT 112: Negative or not required by law. Electronically signed by: Russ Menard M.D. 04/04/2021 9:43 AM
[2021-04-04] MEDS ORDERED: traMADol HCL 50 MG TABLET PO PRN (11:14)
[2021-04-04] MEDS ORDERED: FAMOTIDINE 20 MG TAB PO PRN (11:14)
[2021-04-04] MEDS ORDERED: HYDROmorphone INJ 1 MG/ML SYRINGE IV PRN (11:14)
[2021-04-04] MEDS ORDERED: oxyCODONE HCL IR 5 MG TAB (IMMEDIATE RELEASE) PO PRN (11:14)
[2021-04-04] MEDS ORDERED: GABAPENTIN 300 MG CAP PO PRN (11:14)
[2021-04-04] MEDS ORDERED: ACETAMINOPHEN 500 MG TAB PO PRN (11:14)
[2021-04-04] MEDS ORDERED: METOCLOPRAMIDE HCL INJ 5 MG/ML 2 ML VIAL IV PRN (11:14)
[2021-04-04] MEDS ORDERED: hydrOXYzine HCl 25 MG TAB PO PRN (11:14)
[2021-04-04] MEDS ORDERED: ALUMINUM/MAGNESIUM SUSP 30 ML UDC PO PRN (11:14)
[2021-04-04] MEDS ORDERED: RACEPINEPHRINE 2.25% NEBU SOLN 0.5 ML VIAL INH PRN (11:14)
[2021-04-04] MEDS ORDERED: dexAMETHasone 8 MG in SYRINGE 0 ML IV PRN (11:14)
[2021-04-04] MEDS ORDERED: PROMETHAZINE HCL 12.5 MG in SODIUM CHLORIDE 0.9% 50 ML IV PRN (11:14)
[2021-04-04] MEDS ORDERED: diphenhydrAMINE Capsule 25 MG CAP PO PRN (11:14)
[2021-04-04] MEDS ORDERED: DO NOT ADMINISTER PNEUMOCOCCAL VACCINE PRN (11:14)
[2021-04-04] MEDS ORDERED: SOD PHOSPHATE/SOD BIPHOSPHATE ENEMA 132 ML BTL PR PRN (11:14)
[2021-04-04] MEDS ORDERED: DO NOT ADMINISTER FLU VACCINE PRN (11:14)
[2021-04-04] MEDS ORDERED: NALOXONE HCL 0.4 MG/1 ML VIAL/CARP IV PRN (11:14)
[2021-04-04] MEDS ORDERED: HYDROmorphone INJ 0.5 MG/0.5 ML SYR IV PRN (11:14)
[2021-04-04] MEDS ORDERED: MAGNESIUM HYDROXIDE SUSP 30 ML UDC PO PRN (11:14)
[2021-04-04] MEDS ORDERED: LORazepam 0.5 MG TAB PO PRN (11:14)
[2021-04-04] MEDS ORDERED: ACETAMINOPHEN 1,000 MG/100 ML VIAL IV PRN (11:14)
[2021-04-04] MEDS ORDERED: LORazepam 0.5 MG/1 ML VIAL IV PRN (11:14)
[2021-04-04] MEDS ORDERED: ONDANSETRON 4 MG OD TAB PO PRN (11:14)
[2021-04-04] MEDS ORDERED: CYANOCOBALAMIN 1000 MCG/ML VIAL IM SCH (11:30)
[2021-04-04] MEDS: LACTATED RINGER'S 1,000 ML IV SCH ×2 (12:16→17:07)
--- NOTE | 2021-04-04 13:01 | Hospitalist Consultation ---
Date of Consultation April 04, 2021 Assessment & Plan (1) Cervical stenosis of spinal canal: - POD#0 C5-C7 ACDF [address] Dr[address] Braun - activity and wound care orders as per ortho - pain control with bowel regimen - PT/OT - monitor H/H for acute blood loss anemia and transfuse blood products PRN - 10 cc EBL (2) Hypertension: -BP controlled, continue amlodipine (3) Hypothyroidism: -Continue levothyroxine (4) DVT prophylaxis: -TEDs/SCDs as per spine Ortho Thank you for this consultation. We will follow the patient with you during their hospital stay. You can reach a member of the [facility] Hospitalist Team 28/04 via the [facility] Hospitalist role in [place] [employer]. Supervising Physician Co-Signing Physician Notes Pt was seen and examined, Agreed with Ranjana VILLANUEVA exam assessment and plan. 55-year-old male with PMH HTN, HLD, hypothyroidism, status post C5-C7 ACDF today with Dr. Braun. No post op complication. Continue incentive spirometry. Continue pain control. PT/OT eval. Fall precaution. Continue Monitor H/H. MD Ed History of Present Illness Reason for Consultation: Postop medical management Requesting Physician: Dr. Braun Attending Physician: Dr. Ward History of Present Illness 55-year-old male with PMH HTN, HLD, hypothyroidism, and other problems listed below who is status post C5-C7 ACDF today with Dr. Braun. Postoperatively, the patient is doing well. He reports his pain is well controlled. Denies numbness, tingling, weakness to the upper extremities. No difficulty swallowing. Denies chest pain shortness of breath. No lightheadedness or dizziness. Denies abdominal pain or nausea. Patient has not voided since surgery. Allergies Allergy/AdvReac Type Severity Reaction Status Date / Time No Known Allergies Allergy Verified 03/07/21 12:59 Home Medications Medication Instructions Recorded Confirmed Type cyanocobalamin (vitamin B-12) 1,000 mcg IM DIRECTED 04/24/20 04/04/21 History 1,000 mcg/mL injection kit gabapentin 300 mg capsule 600 mg PO HS PRN 04/24/20 04/04/21 History levothyroxine 200 mcg tablet 200 mcg PO HS 04/24/20 04/04/21 History simvastatin 20 mg tablet 20 mg PO HS 04/24/20 04/04/21 History diphenhydramine 25 1 tab PO HS 05/24/20 04/04/21 History mg-acetaminophen 500 mg tablet (Tylenol PM Extra Strength) amlodipine 10 mg tablet 10 mg PO QAM 03/07/21 04/04/21 History cholecalciferol (vitamin D3) 25 50 mcg PO HS 03/07/21 04/04/21 History mcg (1,000 unit) tablet (Vitamin D3) oxycodone 5 mg tablet 5 mg PO Q6H PRN #20 tab 04/04/21 Rx tramadol 50 mg tablet 50 mg PO Q6H PRN #20 tab 04/04/21 Rx Patient History Medical History Anemia Chronic back pain GERD (gastroesophageal reflux disease) History of COVID-19 09/09/21 (SYMPTOMS>CHILLS/HEADACHE/NAUSEA/ALL OVER BODY ACHES). Had persistent episodes of 'heart racing' for a few weeks after COVID, but all symptoms have now resolved. Hyperlipidemia Hypertension Hypothyroidism Obesity Osteoarthritis Racing heart beat Pt had issues with heart racing/palpitations for a while after having COVID in 09/2020. Was seen by cardio for echo/Holter, workup unremarkable and it has not had symptoms for past two months Vocal cord dysfunction damage r/t chronic reflux Surgical History Fusion of spine LUMBAR History of carpal tunnel release RT/LEFT History of colonoscopy History of endoscopic sinus surgery History of esophagogastroduodenoscopy (EGD) History of Robe fundoplication History of repair of hiatal hernia History of tooth extraction Hx of gastric bypass Hx of inguinal hernia repair RT/LEFT Hx of toe surgery BONE REMOVAL (RT FOOT/LITTLE TOE) Family History Mother Diabetes Family history of diabetes mellitus Grandmother Diabetes Daughter Diabetes Family history of diabetes mellitus Grandmother (Maternal) Family history of diabetes mellitus Other No family history of adverse response to anesthesia Social History Smoking Status: Never smoker Second Hand Exposure: Yes ( A CHILD); Do You Dip or Chew Tobacco: No; Hx Alcohol Use: Yes Alcohol type: wine Preferred Language: Iraqi Communication Ability: Effective Rice Drier Required: No Beliefs That Will Affect Care: None marital status: Current Living Situation: Family Feels Safe at Home: Yes Safety Concerns: Feels Safe At This Time Assistive Devices: Denture - Upper Assistive Devices Comment: PARTIAL UPPER PLATE Review of Systems Review of Systems: ROS per HPI, all other systems reviewed and negative Physical Exam Constitutional: WD/WN, vitals as above Eyes: PERRL, conjunctivae normal, anicteric sclerae ENMT: external ear and nose normal, oropharynx normal Neck: S/p neck surgery, cervical collar in place, surgical anterior neck dressing in place with some bloody staining noted, drain in place draining bloody drainage Respiratory: normal respiratory effort, lungs clear to auscultation Cardiovascular: Rate/Rhythm: regular rate and regular rhythm Vessels: normal peripheral pulses Extremities: no edema Gastrointestinal (Abdomen): normal bowel sounds, soft, nontender, no hepatosplenomegaly Musculoskeletal: no cyanosis or clubbing, extremities motor strength 5/5 Skin: no rashes, warm and dry Neurologic: PERRL, EOMI, accommodation nl, no face palsy, no dysarthria Psychiatric: A+Ox3, euthymic affect Results & Data Results & Data ([facility]) Vital Signs (Past 12 Hours) Vital Signs Temp Pulse Pulse Pulse Resp BP BP 04/04/21 12:22 36.7 C 78 16 136/75 04/04/21 11:50 36.6 C 71 16 114/64 04/04/21 11:17 72 15 04/04/21 11:15 36.7 C 72 15 126/67 04/04/21 10:55 36.1 C L 62 14 123/68 04/04/21 10:45 36.1 C L 58 L 14 113/59 L 04/04/21 10:35 61 12 118/68 04/04/21 10:25 53 L 14 120/71 04/04/21 10:15 50 L 12 106/65 04/04/21 10:05 59 L 12 117/70 04/04/21 09:55 68 14 118/78 04/04/21 09:47 36.4 C L 66 12 116/69 04/04/21 06:55 37.0 C 71 20 171/95 H Pulse Ox Pulse Ox 04/04/21 12:22 94 04/04/21 11:50 94 04/04/21 11:17 93 04/04/21 11:15 94 93 04/04/21 10:55 94 04/04/21 10:45 97 04/04/21 10:35 97 04/04/21 10:25 100 04/04/21 10:15 100 04/04/21 10:05 100 04/04/21 09:55 100 04/04/21 09:47 98 04/04/21 06:55 98
--- NOTE | 2021-04-04 13:23 | Anesthesiology Progress Note ---
Date of Service April 04, 2021 Anesthesia Post Procedure Vital Signs Vital Signs: Temp Pulse Pulse Pulse Resp BP BP 04/04/21 13:18 36.6 C 87 16 146/76 H 04/04/21 12:22 36.7 C 78 16 136/75 04/04/21 11:50 36.6 C 71 16 114/64 04/04/21 11:17 72 15 04/04/21 11:15 36.7 C 72 15 126/67 04/04/21 10:55 36.1 C L 62 14 123/68 04/04/21 10:45 36.1 C L 58 L 14 113/59 L 04/04/21 10:35 61 12 118/68 04/04/21 10:25 53 L 14 120/71 04/04/21 10:15 50 L 12 106/65 04/04/21 10:05 59 L 12 117/70 04/04/21 09:55 68 14 118/78 04/04/21 09:47 36.4 C L 66 12 116/69 04/04/21 06:55 37.0 C 71 20 171/95 H Pulse Ox Pulse Ox 04/04/21 13:18 94 04/04/21 12:22 94 04/04/21 11:50 94 04/04/21 11:17 93 04/04/21 11:15 94 93 04/04/21 10:55 94 04/04/21 10:45 97 04/04/21 10:35 97 04/04/21 10:25 100 04/04/21 10:15 100 04/04/21 10:05 100 04/04/21 09:55 100 04/04/21 09:47 98 04/04/21 06:55 98 Pain Intensity Neck: Pain Intensity: 3 Transfer of Care Handoff Completed per policy Notes Mental Status: alert / awake / arousable Patient Amnestic to Procedure: Yes Nausea / Vomiting: adequately controlled Pain: adequately controlled Airway Patency, RR, SpO2: stable & adequate BP & HR: stable & adequate Hydration State: stable & adequate Anesthetic Complications: no major complications apparent
[2021-04-04] MEDS: ceFAZolin 2000MG 2,000 MG/15 ML SYR IV SCH (17:05)
[2021-04-04] MEDS ORDERED: SIMVASTATIN 20 MG TAB PO SCH (21:00)
[2021-04-04] MEDS ORDERED: LEVOTHYROXINE SODIUM 200 MCG TABLET PO SCH (21:00)
[2021-04-04] MEDS ORDERED: diphenhydrAMINE Capsule 25 MG CAP PO SCH (21:00)
[2021-04-04] MEDS ORDERED: CHOLECALCIFEROL 1,000 UNITS 25 MCG TAB PO SCH (21:00)
[2021-04-04] MEDS ORDERED: ACETAMINOPHEN 500 MG TAB PO SCH (21:00)
[2021-04-04] MEDS ORDERED: DOCUSATE SODIUM/SENNA 50/8.6MG TAB PO SCH (21:00)
[2021-04-05] MEDS: ceFAZolin 2000MG 2,000 MG/15 ML SYR IV SCH (00:07)
[2021-04-05] MEDS ORDERED: POLYETHYLENE (MIRALAX) 17 GM PACK PO SCH (06:00)
[2021-04-05] MEDS: CeleBREX 200 MG CAP PO SCH (06:17)
[2021-04-05] MEDS: ACETAMINOPHEN 500 MG TAB PO SCH (06:17)
[2021-04-05] MEDS: GABAPENTIN 600 MG DOSE PO SCH (06:17)
[2021-04-05 06:32] LABS: Hematocrit (blood only) 39.9 % (42-52); Hemoglobin 12.3 g/dL (14.0-18.0); Mean Corpuscular Hemoglobin 24.7 pg (25-34); Mean Corpuscular Hgb Conc 30.8 g/dL (32-36); Mean Corpuscular Volume 80.3 fL (80-100); Mean Platelet Volume 9.1 fL (7.4-10.4); Platelet Count 369 K/uL (130-400); RDW Coefficient of Variation 16.1 % (11.5-14.5); RDW Standard Deviation 46.5 fL (36.4-46.3); Red Blood Count 4.97 M/uL (4.7-6.1); White Blood Count 16.44 K/uL (4.8-10.8)
[2021-04-05 07:15] LABS: BUN Creatinine Ratio 9.6 (10-20); Calcium 9.6 mg/dl (8.5-10.1); Creatinine Clr Calc Pharmacy 102.9 ml/min; Est GFR (African American) 97.8 ml/min; Est GFR (Non-African American) 84.4 ml/min; Potassium 3.9 mmol/L (3.5-5.1)
--- NOTE | 2021-04-05 08:06 | Discharge Summary ---
Date of Service April 05, 2021 Admission HPI Per Admitting Provider This is a 55-year-old male presents with chronic persistent neck and arm pain after failed extensive course of nonoperative care is here for surgical invention. Admission Exam (Per Admitting) Constitutional WD/WN, vitals as above Eyes normal visual duff by confrontation ENMT external ear and nose normal, oropharynx normal Neck normal visual inspection Respiratory normal respiratory effort Cardiovascular Extremities: normal capillary refill Chest (Breasts) Chest: normal inspection of chest Gastrointestinal (Abdomen) Inspection/Auscultation: abdomen normal to inspection Musculoskeletal Spine: + cervical collar present Extremities: extremities normal to inspection and strength 5/5 throughout Skin no rashes, warm and dry Neurologic normal touch/pain/proprioception and moves all extremities Psychiatric A+Ox3, euthymic affect Discharge Data Consultations 04/04/21 11:14 Consult Hospitalist Routine Procedures Performed Operation Date: 04/04/21 07:45 Actual Procedures p C5-C7 Anterior Cervical Discectomy and Fusion, Spinal Cord Monitoring(Not Applicable) - Patrice Braun DO Hospital Course (1) Cervical stenosis of spinal canal: Patient has had an uncomplicated postoperative course status post ACDF C5- 6, C6-7. HU drain output last shift was 5 cc. Arm symptoms greatly improved. Modest pain. Is tolerating a soft diet. Mild dysphagia, no dysphonia. Is up and ambulatory and using the restroom/voiding without incident. He is being discharged home on postoperative day one Discharge Instructions ACTIVITY RECOMMENDATIONS: SELF CARE INSTRUCTIONS AFTER CERVICAL FUSIONS 1. No smoking. Smoking drastically decreases the chance of a solid fusion. 2. No bending, lifting more than 5 pounds, or twisting (roll like a log when turning in bed). 3. You may shower 3 days after surgery. Thoroughly dry wound. Do not soak in the tub. 4. Cervical collar: Must be worn at all times including sleeping. You may remove the brace only to bath, eat and if you are sitting in a recliner. 5. Please walk as much as you can for exercise. Gradually increase the distance that you walk as your endurance increases. SPECIAL CARE INSTRUCTIONS: VERY IMPORTANT TO READ AND REVIEW A. Do not take any anti-inflammatory medications (i.e. Indocin, Advil, Aspirin, Naprosyn, Aleve, Motrin, etc.) as these may inhibit the chance of a solid fusion. Tylenol is okay to take. B. Your surgical incision has been closed with a cosmetic suture under the skin that will dissolve in about 6 weeks. In 14 days, you can use a pair of clean scissors and cut the suture that is left outside of the skin at the ends of your incision. C. Complications are uncommon, but please contact us if you have any signs or symptoms of: 1. wound infection (fever higher than 102.5 degrees F, redness, separation of wound, drainage, or increasing pain from the incision) 2. blood clots in legs (pain, swelling, redness and warmth in legs) 3. urinary tract infection (fever higher than 102.5 degrees, burning upon urination or increased frequency of urination) 4. nerve problems (inability to walk on your toes or heels, numbness, loss of bowel or bladder control) 5. any other symptoms that concern you. D. Please call the office at if you have any concerns or questions about your operation or recovery. MANAGING PAIN AFTER SPINAL SURGERY 1. Narcotic medication is intended for short-term use and will be provided for surgical pain. Surgical pain usually lasts for a period of 4-6 weeks. Narcotic medication includes Percocet, Vicodin, Darvocet, Tylenol #3 or Lortab. 2. Longer-term pain is more appropriately treated with non-narcotic medication such as Tylenol ES. 3. Muscle spasm is not appropriately treated with narcotics. Muscle relaxers such as Soma, Flexeril or Skelaxin can be used along with Tylenol ES. 4. Remember that we all live with some "aches and pains". This is not unusual or uncommon after an injury or as we get older. 5. We will provide appropriate medication within the normal guidelines of their prescribed use. We will also be very cautious and aware of potential abuse and extended duration of patients' medication needs. 6. Please allow 2-3 days to process refills. Prescriptions will not be mailed but must be picked up at the office. FOLLOW UP VISIT: Keep your scheduled follow-up appointment. Any questions, please call the office at . Supervising Physician Co-Signing Physician Notes Dr. Patrice Braun
[2021-04-05] MEDS ORDERED: amLODIPine BESYLATE 5 MG TAB PO SCH (09:00)
[2021-04-05] MEDS ORDERED: dexAMETHasone 8 MG in SYRINGE 0 ML IV SCH (09:00)
[2021-04-06] MEDS ORDERED: bisacodyL 10 MG SUPP PR PRN (08:00)
== END 2021-04-05 11:57 | disposition home or self-care (01) ==
LOC: ASU 06:15 → INTOOBSV 10:13 → 3E 10:13
DX: E78.5 Hyperlipidemia, unspecified; Z79.899 Other long term (current) drug therapy; K21.9 Gastro-esophageal reflux disease without esophagitis; M48.02 Spinal stenosis, cervical region; E66.9 Obesity, unspecified; I10 Essential (primary) hypertension; Z79.891 Long term (current) use of opiate analgesic

== ENCOUNTER 2022-05-20 06:20 | Inpatient (IN) ==
--- NOTE | 2022-05-16 16:18 | Anesthesiology Consultation ---
Date of Service May 16, 2022 Assessment & Plan (1) Encounter for pre-operative examination: Chart Review Chart Review: Acceptable Risk for Surgery (pending anesthesia evaluation DOS ) and Patient NOT seen in Pre Admission Testing Preop labs will be 61 days old by DOS- will leave to anesthesiologist discretion if repeat labs needed DOS Per nursing assessment 05/16/2022, pt returned from [place] on 05/15/22- traveled by plane. Stayed in hotel with friends. No large groups. Uses PPE occ. No known Covid positive exposures or Covid related symptoms. No known Covid infection in the past 90 days. Pt is fully vaccinated for Covid. Preop Covid testing 05/16/22= negative.. Due to travel- will check Bryant test DOS. Pt will need Bryant DOS due to inpatient status and possible patient cohorting C5-C7 ACDF 04/04/21= Done under [facility] with Grade 1 view with Glidescope #4. ETT #7.5. History Surgery Operation Date: 05/20/22 11:30 Proposed Procedures p L5-S1 Decompression and Fusion, L3-L5 Hardware Removal Spinal Cord Monitor - Patrice Braun DO Height/Weight Height: 5 ft 8 in Weight: 97.976 kg Allergies Allergy/AdvReac Type Severity Reaction Status Date / Time No Known Allergies Allergy Verified 05/16/22 07:37 Medications Home Medications Medication Instructions Recorded Confirmed Last Taken cyanocobalamin (vitamin B-12) 1,000 mcg IM DIRECTED 04/24/20 05/16/22 3 Weeks Ago 1,000 mcg/mL injection kit ~03/14/21 gabapentin 300 mg capsule 600 mg PO HS PRN Pain 04/24/20 05/16/22 04/03/21 22:00 levothyroxine 200 mcg tablet 200 mcg PO HS 04/24/20 05/16/22 04/03/21 22:00 simvastatin 20 mg tablet 20 mg PO HS 04/24/20 05/16/22 04/02/21 22:00 diphenhydramine 25 1 tab PO HS PRN Sleep 05/24/20 05/16/22 04/03/21 22:00 mg-acetaminophen 500 mg tablet (Tylenol PM Extra Strength) cholecalciferol (vitamin D3) 25 50 mcg PO HS 03/07/21 05/16/22 04/03/21 22:00 mcg (1,000 unit) tablet (Vitamin D3) oxycodone 5 mg tablet 5 mg PO Q6H PRN pain, severe #20 04/04/21 05/16/22 Unknown tabs tramadol 50 mg tablet 50 mg PO Q6H PRN pain, moderate 04/04/21 05/16/22 Unknown #20 tabs baclofen 10 mg tablet 20 mg PO HS PRN Muscle Spasm 05/16/22 05/16/22 Unknown melatonin 5 mg tablet 5 mg PO HS PRN Sleep 05/16/22 05/16/22 Unknown tamsulosin 0.4 mg capsule 0.8 mg PO HS 05/16/22 05/16/22 Unknown Past Medical History Medical History (Updated 05/17/22 @ 09:11 by Luana Sifuentes PA-C) Anemia Chronic back pain GERD (gastroesophageal reflux disease) History of COVID-19 09/09/20(SYMPTOMS>CHILLS/HEADACHE/NAUSEA/ALL OVER BODY ACHES). Had persistent episodes of 'heart racing' for a few weeks after COVID, but all symptoms have now resolved. Hyperlipidemia Hypertension Hypothyroidism Obesity Racing heart beat Pt had issues with heart racing/palpitations for a while after having COVID in 09/2020. Was seen by cardio for echo/Holter, workup unremarkable and has not had symptoms recently -follows ramo/ [facility] cardio last visit 2020 Vocal cord dysfunction Damage r/t chronic reflux Past Family History Family History Mother Diabetes Family history of diabetes mellitus Grandmother Diabetes Daughter Diabetes Family history of diabetes mellitus Grandmother (Maternal) Family history of diabetes mellitus Other No family history of adverse response to anesthesia Past Surgical History Surgical History Fusion of spine LUMBAR History of carpal tunnel release RT/LEFT History of colonoscopy History of endoscopic sinus surgery History of esophagogastroduodenoscopy (EGD) History of Robe fundoplication History of repair of hiatal hernia History of tooth extraction Hx of gastric bypass Hx of inguinal hernia repair RT/LEFT Hx of toe surgery BONE REMOVAL (RT FOOT/LITTLE TOE) Social History Smoking Status: Never smoker Do You Dip or Chew Tobacco: No Hx Alcohol Use: Yes (small amount) Alcohol type: wine alcohol intake frequency: a few times a week Hx Substance Use: No substance use type: does not use Lab Results Anesthesia Preop Results Results Anesthesia Widget: WBC 7.04 K/uL (4.8-10.8) 03/20/22 Hgb 11.7 g/dL (14.0-18.0) L 03/20/22 Hct 39.0 % (42-52) L 03/20/22 Plt 385 K/uL (130-400) 03/20/22 Na 137 mmol/L (136-145) 03/20/22 K 4.1 mmol/L (3.5-5.1) 03/20/22 Cl 106 mmol/L (98-107) 03/20/22 CO2 25 mmol/L (21-32) 03/20/22 BUN 12 mg/dl (6-23) 03/20/22 Creat 0.83 mg/dl (0.6-1.4) 03/20/22 Fasting Glucose 98 mg/dl (70-99) 03/20/22 PT 10.5 Seconds (9.0-12.0) 03/20/22 PTT 25.6 Seconds (21.0-31.0) 03/20/22 INR 1.0 (0.9-1.1) 03/20/22 Urine Color Yellow 03/20/22 Urine Appearance Clear (Clear) 03/20/22 Urine pH 5.0 (4.5-7.5) 03/20/22 Urine Specific [place] 1.022 (1.000-1.030) 03/20/22 Urine Protein Negative (Negative) 03/20/22 Urine Glucose (UA) Negative (Negative) 03/20/22 Urine Ketones Negative (Negative) 03/20/22 Urine Blood Negative (Negative) 03/20/22 Urine Nitrite Negative (Negative) 03/20/22 Urine Bilirubin Negative (Negative) 03/20/22 Urine Urobilinogen Negative (Negative) 03/20/22 Urine Leukocyte Esterase Negative (Negative) 03/20/22 Testing Laboratory Results 03/20/22= URINE CULTURE: No growth Electrocardiogram Date: 03/20/22 Findings: + SB @ (55bpm ) Otherwise normal EKG per cardio. Chest X-Ray Date: 03/20/22 Findings: + NAD Echocardiogram Date: 11/13/20 EF: 60% LV Function: normal RWMA: + none Left ventricular size is normal with normal wall thickness. Mild TR.
[~2022-05-20 06:20] MED LIST changes: +ACETAMINOPHEN 500 MG TAB PO SCH; +CeleBREX 200 MG CAP PO SCH; +GABAPENTIN 600 MG DOSE PO SCH
[2022-05-20] MEDS ORDERED: ceFAZolin 330 MG/ML 1 GM VIAL ONE (07:12)
[2022-05-20] MEDS ORDERED: BUPIVACAINE/EPINEPHRINE 0.25% 1:200,000 30 ML VIAL ONE (07:12)
[2022-05-20] MEDS ORDERED: GLYCOPYRROLATE 0.2 MG/ML VIAL ONE (07:27)
[2022-05-20] MEDS ORDERED: NEOSTIGMINE METHYLSULFATE 1 MG/ML 10ML VIAL ONE (07:27)
[2022-05-20] MEDS ORDERED: ONDANSETRON INJ 2 MG/ML 2 ML VIAL ONE (07:27)
[2022-05-20] MEDS ORDERED: PROPOFOL IV EMULSION 10 MG/ML 20 ML VIAL IV ONE (07:27)
[2022-05-20] MEDS ORDERED: MIDAZOLAM HCL 1 MG/ML 2ML VIAL ONE (07:27)
[2022-05-20] MEDS ORDERED: fentaNYL citrate 100 MCG/2 ML VIAL ONE ×2 (07:27)
[2022-05-20] MEDS ORDERED: DEXAMETHASONE SOD INJ 4 MG/ML VIAL ONE (07:27)
--- NOTE | 2022-05-20 07:37 | History & Physical Bridge Note ---
Date of Service May 20, 2022 History & Physical Bridge Note I have examined the patient, reviewed the History & Physical and in the interval since the performance of the History & Physical I have noted the following changes of clinical significance: no changes noted
--- NOTE | 2022-05-20 07:38 | History & Physical Report ---
Date of Service May 20, 2022 Assessment & Plan (1) Neurogenic claudication due to lumbar spinal stenosis: Plan: L5-S1 decompression and fusion, L3-L5 hardware removal History of Present Illness Chief Complaint: Back and bilateral leg pain Primary Care Provider: Alli Diaz Patient is a 56-year-old male presents with chronic chest and back and leg pain after failed course of nonoperative care is here for surgical intervention. Allergies Allergy/AdvReac Type Severity Reaction Status Date / Time No Known Allergies Allergy Verified 05/20/22 06:37 Home Medications Medication Instructions Recorded Confirmed Type cyanocobalamin (vitamin B-12) 1,000 mcg IM DIRECTED 04/24/20 05/20/22 History 1,000 mcg/mL injection kit gabapentin 300 mg capsule 600 mg PO HS PRN Pain 04/24/20 05/20/22 History levothyroxine 200 mcg tablet 200 mcg PO HS 04/24/20 05/20/22 History simvastatin 20 mg tablet 20 mg PO HS 04/24/20 05/20/22 History diphenhydramine 25 1 tab PO HS PRN Sleep 05/24/20 05/20/22 History mg-acetaminophen 500 mg tablet (Tylenol PM Extra Strength) cholecalciferol (vitamin D3) 25 50 mcg PO HS 03/07/21 05/20/22 History mcg (1,000 unit) tablet (Vitamin D3) oxycodone 5 mg tablet 5 mg PO Q6H PRN pain, severe #20 04/04/21 05/20/22 Rx tabs tramadol 50 mg tablet 50 mg PO Q6H PRN pain, moderate 04/04/21 05/20/22 Rx #20 tabs baclofen 10 mg tablet 20 mg PO HS PRN Muscle Spasm 05/16/22 05/20/22 History melatonin 5 mg tablet 5 mg PO HS PRN Sleep 05/16/22 05/20/22 History tamsulosin 0.4 mg capsule 0.8 mg PO HS 05/16/22 05/20/22 History Past Med/Surg History Medical History Anemia Chronic back pain GERD (gastroesophageal reflux disease) History of COVID-19 09/09/20(SYMPTOMS>CHILLS/HEADACHE/NAUSEA/ALL OVER BODY ACHES). Had persistent episodes of 'heart racing' for a few weeks after COVID, but all symptoms have now resolved. Hyperlipidemia Hypertension Hypothyroidism Obesity Racing heart beat Pt had issues with heart racing/palpitations for a while after having COVID in 09/2020. Was seen by cardio for echo/Holter, workup unremarkable and has not had symptoms recently -follows ramo/ [facility] cardio last visit 2020 Vocal cord dysfunction Damage r/t chronic reflux Surgical History Fusion of spine LUMBAR History of carpal tunnel release RT/LEFT History of colonoscopy History of endoscopic sinus surgery History of esophagogastroduodenoscopy (EGD) History of Robe fundoplication History of repair of hiatal hernia History of tooth extraction Hx of gastric bypass Hx of inguinal hernia repair RT/LEFT Hx of toe surgery BONE REMOVAL (RT FOOT/LITTLE TOE) Family History Mother Diabetes Family history of diabetes mellitus Grandmother Diabetes Daughter Diabetes Family history of diabetes mellitus Grandmother (Maternal) Family history of diabetes mellitus Other No family history of adverse response to anesthesia Social History Smoking Status: Never smoker Second Hand Exposure: No; Do You Dip or Chew Tobacco: No; Tobacco Cessation Education Requested by Patient: No Hx Alcohol Use: Yes (small amount) Alcohol type: wine Hx Substance Use: No Preferred Language: Peruvian Communication Ability: Effective 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
[2022-05-20] MEDS ORDERED: ATROPINE SULFATE 0.1 MG/ML 10ML SYR IV PRN (07:48)
[2022-05-20] MEDS ORDERED: HYDROmorphone INJ 2 MG/ML SYR/VIAL IV PRN (07:48)
[2022-05-20] MEDS ORDERED: ePHEDrine sulfate 50 MG/ML AMP IV PRN (07:48)
[2022-05-20] MEDS ORDERED: fentaNYL citrate 100 MCG/2 ML VIAL IV PRN (07:48)
[2022-05-20] MEDS ORDERED: PROMETHAZINE HCL 6.25 MG in SODIUM CHLORIDE 0.9% 50 ML IV PRN (07:48)
[2022-05-20] MEDS ORDERED: ONDANSETRON INJ 2 MG/ML 2 ML VIAL IV PRN ×2 (07:48→11:15)
[2022-05-20] MEDS ORDERED: HYDROmorphone INJ 2 MG/ML SYR/VIAL ONE (08:00)
[2022-05-20] MEDS ORDERED: ROCURONIUM BROMIDE 10 MG/ML 5 ML VIAL IV ONE (08:24)
[2022-05-20] MEDS ORDERED: FLOSEAL HEMOSTATIC MATRIX 10ML TOP ONE (08:40)
--- NOTE | 2022-05-20 09:52 | Operative Report ---
Post Operative Report Pre & Post Diagnosis Operation Date: 05/20/22 07:45 Pre-Op Diagnosis: Neurogenic claudication due to lumbar spinal stenosis Post-Op Diagnosis: Neurogenic claudication due to lumbar spinal stenosis I identified the patient and participated in the time-out.: Yes Procedure Operation Date: 05/20/22 07:45 Actual Procedures #1 removal of posterior instrumentation L3-L4 L4-L5. #2 exploration of fusion L3-L4 L4-5 #3 lumbar decompression bilateral medial facetectomies and foraminotomies L5-S1. #4 posterior spinal fusion L5-S1. #5 placement posterior instrumentation L5-S1. #6 interbody fusion L5-S1. #7 placement of Spira 15 x 26 mm cage at L5-S1. #8 placement locally harvested morselized autograft in the posterior gutters. #9 placement I factor, V toss in interbody space and posterior lateral gutters. Surgeon Patrice Braun, DO [place] Maxim Gallagher Estimated Blood Loss 200 Findings See Below Patient is 5 foot 8 weighing over 99 kg with a BMI in excess of 33. The p atient's body habitus did contribute to significant technical difficulty required deeper retractors longer instruments in order to perform his procedure. This at least 50% increased operative time. Specimens None Indications This is a 53-year-old male who presents above-mentioned diagnosis after failed course of nonoperative care is here for the above-mentioned procedure. Description of Procedure Patient was met with identified informed consent obtained. Patient was then taken to the operative suite underwent intubation placed in the prone position on the Alvarez table atop the Krzysztof frame. All bony prominences well-padded eyes inspected to ensure no external pressure placed upon them. This point lumbar spine was prepped and draped in normal sterile fashion. Sharp dissection with the assistance pericardial form down to and exposing instrumentation at L3 L4-5 bilaterally including the remaining lamina and transverse processes of L5 and the sacral ala bilaterally. And proceeded move the hardware bilaterally explore the fusion mass noting it to be mature and intact. Then performed a complete laminectomy L5 including bilateral medial facetectomies and foraminotomies addressing severe foraminal stenosis. Pedicle screws then placed in L5 and S1 levels bilaterally with assistance of fluoroscopy and by way of transforaminal approach and left pleat discectomy of L5-S1 was performed endplates curetted to subcortical bleeding bone and a 15 x 26 mm spiral cage filled with I factor tapped in position. The rods then compressed locked into final position bilaterally. The transverse processes of L5 and sacral ala burred to subcortical bleeding bone. I factor combined with V toss and locally harvested morselized autograft was placed in the posterior gutters. 15 round HU drain inserted. The incision was then closed with 1 Vicryl the fascia 2-0 Vicryl subcutaneously and 4 Monocryl for final skin closure. Steri-Strip sterile dressings placed. Patient taken to the PACU stable condition. Please note spinal cord monitoring visualized at the procedure no changes noted. Lastly Maxim Gallagher was present at the entire surgery involved in patient positioning complex portions of the surgery and final skin closure. I attest to the content of the Intraoperative Record and any orders documented therein. Any exceptions are noted below.
--- NOTE | 2022-05-20 10:18 | Fluoroscopy Report ---
FL lumbar spine 2-3V CLINICAL HISTORY: Hardware removal. L5-S1 discectomy and fusion. COMPARISON STUDY: Lumbar spine fluoroscopic images May 24, 2020. FLUOROSCOPY TIME: 18 seconds. FLUOROSCOPIC IMAGES: 2 FINDINGS: Previous L3-L5 posterior fusion hardware has been removed. Previous L3-L4 and L4-L5 discect omies are noted. Interval L5-S1 discectomy with interbody spacer placement as noted with posterior de compression and bilateral pedicle screw fusion. IMPRESSION: Hardware removal with interval L5-S1 discectomy, posterior decompression and bilateral p edicle screw fusion. ACT 112: Negative or not required by law. Electronically signed by: Russ Menard M.D. 05/20/2022 10:17 AM
[2022-05-20] MEDS ORDERED: HYDROmorphone INJ 0.5 MG/0.5 ML SYR IV PRN (11:15)
[2022-05-20] MEDS ORDERED: PROMETHAZINE HCL 12.5 MG in SODIUM CHLORIDE 0.9% 50 ML IV PRN (11:15)
[2022-05-20] MEDS ORDERED: METOCLOPRAMIDE HCL INJ 5 MG/ML 2 ML VIAL IV PRN (11:15)
[2022-05-20] MEDS ORDERED: MELATONIN 3 MG TAB PO PRN (11:15)
[2022-05-20] MEDS ORDERED: bisacodyL 10 MG SUPP PR PRN (11:15)
[2022-05-20] MEDS ORDERED: NON-FORMULARY MEDICATION (Cyanocobalamin (Vitamin B-12) 1,000 mcg/mL Kit) IM SCH (11:15)
[2022-05-20] MEDS ORDERED: FAMOTIDINE 20 MG TAB PO PRN (11:15)
[2022-05-20] MEDS ORDERED: ONDANSETRON 4 MG OD TAB PO PRN (11:15)
[2022-05-20] MEDS ORDERED: diphenhydrAMINE Capsule 25 MG CAP PO PRN (11:15)
[2022-05-20] MEDS ORDERED: hydrOXYzine HCl 25 MG TAB PO PRN (11:15)
[2022-05-20] MEDS ORDERED: ACETAMINOPHEN 1,000 MG/100 ML VIAL IV PRN (11:15)
[2022-05-20] MEDS ORDERED: ACETAMINOPHEN 500 MG TAB PO PRN (11:15)
[2022-05-20] MEDS ORDERED: traMADol HCL 50 MG TABLET PO PRN (11:15)
[2022-05-20] MEDS ORDERED: LORazepam 0.5 MG TAB PO PRN (11:15)
[2022-05-20] MEDS ORDERED: LORazepam 0.5 MG in SYRINGE 0.25 ML IV PRN (11:15)
[2022-05-20] MEDS ORDERED: BACLOFEN 20 MG TAB PO PRN (11:15)
[2022-05-20] MEDS ORDERED: NALOXONE HCL 0.4 MG/1 ML VIAL/CARP IV PRN (11:15)
[2022-05-20] MEDS ORDERED: ALUMINUM/MAGNESIUM SUSP 30 ML UDC PO PRN (11:15)
[2022-05-20] MEDS ORDERED: GABAPENTIN 300 MG CAP PO PRN (11:15)
[2022-05-20] MEDS ORDERED: SOD PHOSPHATE/SOD BIPHOSPHATE ENEMA 132 ML BTL PR PRN (11:15)
[2022-05-20] MEDS ORDERED: HYDROmorphone INJ 1 MG/ML SYRINGE IV PRN (11:15)
[2022-05-20] MEDS ORDERED: MAGNESIUM HYDROXIDE SUSP 30 ML UDC PO PRN (11:15)
[2022-05-20] MEDS ORDERED: DO NOT ADMINISTER PNEUMOCOCCAL VACCINE PRN (11:15)
[2022-05-20] MEDS ORDERED: DO NOT ADMINISTER FLU VACCINE PRN (11:15)
--- NOTE | 2022-05-20 11:24 | Anesthesiology Progress Note ---
Date of Service May 20, 2022 Anesthesia Post Procedure Vital Signs Vital Signs: Temp Pulse Pulse Resp BP Pulse Ox O2 Del Method 05/20/22 11:06 37 C 78 16 150/92 H 96 Room Air 05/20/22 11:00 54 L 12 113/72 94 Room Air 05/20/22 10:50 36.3 C L 63 12 106/79 94 Room Air 05/20/22 10:40 65 12 98/81 L 95 Room Air 05/20/22 10:30 80 15 139/83 100 Oxymask 05/20/22 10:20 79 12 138/74 99 Oxymask 05/20/22 10:12 36.4 C L 101 H 12 166/82 H 99 Oxymask 05/20/22 06:51 36.7 C 68 18 135/86 97 Room Air O2 Flow Rate 05/20/22 11:06 05/20/22 11:00 05/20/22 10:50 05/20/22 10:40 05/20/22 10:30 5 05/20/22 10:20 5 05/20/22 10:12 5 05/20/22 06:51 Pain Intensity Lower Back: Pain Intensity: 4 Left Leg: Pain Intensity: 7 Transfer of Care Handoff Completed per policy Notes Mental Status: alert / awake / arousable Patient Amnestic to Procedure: Yes Nausea / Vomiting: adequately controlled Pain: adequately controlled Airway Patency, RR, SpO2: stable & adequate BP & HR: stable & adequate Hydration State: stable & adequate Anesthetic Complications: no major complications apparent
--- NOTE | 2022-05-20 11:51 | Hospitalist Consultation ---
Date of Consultation May 20, 2022 Assessment & Plan (1) Neurogenic claudication due to lumbar spinal stenosis: S/p removal of instrumentation of L3-L5 and decompression & fusion of L5-S1 on 05/[address] Braun. Prolonged surgery time and EBL of 200 mL per operative report. - At risk for acute blood loss anemia - Will monitor and order PRBCs or IV Venofer as needed. - Post-operative care per primary team - DVT ppx per primary team (2) Hypertension: Noted in chart, but not on any meds. BP presently 130/75 which is perfectly acceptable in inpatient setting. - Monitor BP (3) Hypothyroidism: Most recent TSH is unavailable. No signs/symptoms of hypo-/hyperthyroidism. - Continue home Synthroid 200 mcg - Of note, discussed with patient that Synthroid should be taken in the morning on an empty stomach instead of in the evening with food as this aids absorption. He will talk with his PCP about this. (4) DVT prophylaxis: SCDs - Chemoprophylaxis per primary team per surgical bleeding risks Will see tomorrow, then likely sign off if medically stable. History of Present Illness Attending Physician: Patrice Braun DO History of Present Illness 56yo M w/ hx of hypothyroidism and neurogenic claudication who presents as a routine consult after a removal of instrumentation of L3-L5 and decompression & fusion of L5-S1. Per the operative report, the surgery was prolonged due to body habitus. EBL was 200 mL. Otherwise no surgical complications per my read of the operative report. Surgery was pursued due to ongoing pain and symptoms despite conservative medical therapy and PT. The patient is in no distress after the surgery. Feels some "tighteness" in the back, but no real pain. Still tired from anesthesia. Allergies Allergy/AdvReac Type Severity Reaction Status Date / Time No Known Allergies Allergy Verified 05/20/22 06:37 Home Medications Medication Instructions Recorded Confirmed Type cyanocobalamin (vitamin B-12) 1,000 mcg IM DIRECTED 04/24/20 05/20/22 History 1,000 mcg/mL injection kit gabapentin 300 mg capsule 600 mg PO HS PRN Pain 04/24/20 05/20/22 History levothyroxine 200 mcg tablet 200 mcg PO HS 04/24/20 05/20/22 History simvastatin 20 mg tablet 20 mg PO HS 04/24/20 05/20/22 History diphenhydramine 25 1 tab PO HS PRN Sleep 05/24/20 05/20/22 History mg-acetaminophen 500 mg tablet (Tylenol PM Extra Strength) cholecalciferol (vitamin D3) 25 50 mcg PO HS 03/07/21 05/20/22 History mcg (1,000 unit) tablet (Vitamin D3) oxycodone 5 mg tablet 5 mg PO Q6H PRN pain, severe #20 04/04/21 05/20/22 Rx tabs tramadol 50 mg tablet 50 mg PO Q6H PRN pain, moderate 04/04/21 05/20/22 Rx #20 tabs baclofen 10 mg tablet 20 mg PO HS PRN Muscle Spasm 05/16/22 05/20/22 History melatonin 5 mg tablet 5 mg PO HS PRN Sleep 05/16/22 05/20/22 History tamsulosin 0.4 mg capsule 0.8 mg PO HS 05/16/22 05/20/22 History Patient History Medical History Anemia Chronic back pain GERD (gastroesophageal reflux disease) History of COVID-19 09/09/20(SYMPTOMS>CHILLS/HEADACHE/NAUSEA/ALL OVER BODY ACHES). Had persistent episodes of 'heart racing' for a few weeks after COVID, but all symptoms have now resolved. Hyperlipidemia Hypertension Hypothyroidism Obesity Racing heart beat Pt had issues with heart racing/palpitations for a while after having COVID in 09/2020. Was seen by cardio for echo/Holter, workup unremarkable and has not had symptoms recently -follows w/ [facility] last visit 2020 Vocal cord dysfunction Damage r/t chronic reflux Surgical History Fusion of spine LUMBAR History of carpal tunnel release RT/LEFT History of colonoscopy History of endoscopic sinus surgery History of esophagogastroduodenoscopy (EGD) History of Robe fundoplication History of repair of hiatal hernia History of tooth extraction Hx of gastric bypass Hx of inguinal hernia repair RT/LEFT Hx of toe surgery BONE REMOVAL (RT FOOT/LITTLE TOE) Family History Mother Diabetes Family history of diabetes mellitus Grandmother Diabetes Daughter Diabetes Family history of diabetes mellitus Grandmother (Maternal) Family history of diabetes mellitus Other No family history of adverse response to anesthesia Social History Smoking Status: Never smoker Second Hand Exposure: No; Do You Dip or Chew Tobacco: No; Tobacco Cessation Education Requested by Patient: No Hx Alcohol Use: Yes (small amount) Alcohol type: wine Hx Substance Use: No Preferred Language: [place] Communication Ability: Effective Mat Man Required: No Beliefs That Will Affect Care: None marital status: Current Living Situation: Spouse and Family Other Information That Helps Us Care for You: No Feels Safe at Home: Yes Safety Concerns: Feels Safe At This Time Assistive Devices: Denture - Upper Review of Systems Review of Systems: All systems reviewed & are unremarkable except as noted in HPI & below Physical Exam Constitutional: WD/WN, vitals as above Eyes: EOM intact bilaterally; no conjunctival abnormality ENMT: external ear and nose normal, oropharynx normal Neck: trachea midline, no thyromegaly normal visual inspection Respiratory: normal respiratory effort, lungs clear to auscultation no respiratory distress Cardiovascular: RRR, no murmur, no edema Gastrointestinal (Abdomen): Inspection/Auscultation: abdomen normal to inspection; abdomen not distended Musculoskeletal: no cyanosis or clubbing, extremities motor strength 5/5 Skin: no rashes, warm and dry Neurologic: moves all extremities and awake Psychiatric: Orientation: alert, oriented to person and cooperative Results & Data Results & Data ([facility]) Vital Signs (Past 12 Hours) Vital Signs Temp Pulse Pulse Resp BP Pulse Ox O2 Del Method 05/20/22 11:32 37.1 C 76 16 128/76 96 Room Air 05/20/22 11:06 37 C 78 16 150/92 H 96 Room Air 05/20/22 11:00 54 L 12 113/72 94 Room Air 05/20/22 10:50 36.3 C L 63 12 106/79 94 Room Air 05/20/22 10:40 65 12 98/81 L 95 Room Air 05/20/22 10:30 80 15 139/83 100 Oxymask 05/20/22 10:20 79 12 138/74 99 Oxymask 05/20/22 10:12 36.4 C L 101 H 12 166/82 H 99 Oxymask 05/20/22 06:51 36.7 C 68 18 135/86 97 Room Air O2 Flow Rate 05/20/22 11:32 05/20/22 11:06 05/20/22 11:00 05/20/22 10:50 05/20/22 10:40 05/20/22 10:30 5 05/20/22 10:20 5 05/20/22 10:12 5 05/20/22 06:51 PG Care Time/CCT Total # of Minutes Spent Total Time Spent with Patient: Total time spent is greater than 50% in coordination of care (as documented) at patient's floor/unit and/or counseling patient: Coding Level of Care Code 34021 Inpt Consult Level 3 Diagnoses Neurogenic claudication due to lumbar spinal stenosis M48.062 Hypertension I10 Hypothyroidism E03.9 DVT prophylaxis Z29.9
[2022-05-20] MEDS: oxyCODONE HCL IR 5 MG TAB (IMMEDIATE RELEASE) PO PRN ×2 (13:14→21:32)
[2022-05-20] MEDS: ceFAZolin 2000MG 2,000 MG/15 ML SYR IV SCH (15:33)
[2022-05-20] MEDS: LACTATED RINGER'S 1,000 ML IV SCH ×2 (15:34→22:17)
[2022-05-20] MEDS: CHOLECALCIFEROL 1,000 UNITS 25 MCG TAB PO SCH (21:13)
[2022-05-20] MEDS: TAMSULOSIN HCL 0.4 MG CAP PO SCH (21:13)
[2022-05-20] MEDS: DOCUSATE SODIUM/SENNA 50/8.6MG TAB PO SCH (21:13)
[2022-05-20] MEDS: SIMVASTATIN 20 MG TAB PO SCH (21:14)
[2022-05-20] MEDS: LEVOTHYROXINE SODIUM 200 MCG TABLET PO SCH (21:14)
[2022-05-21] MEDS: ceFAZolin 2000MG 2,000 MG/15 ML SYR IV SCH (00:49)
[2022-05-21] MEDS: LACTATED RINGER'S 1,000 ML IV SCH (04:50)
[2022-05-21] MEDS: POLYETHYLENE (MIRALAX) 17 GM PACK PO SCH ×4 (04:57→22:00)
[2022-05-21 06:54] LABS: Basophils # (auto) 0.03 K/uL (0-0.2); Basophils % (auto) 0.2 %; Eosinophils # (auto) 0.01 K/uL (0-0.50); Eosinophils % (auto) 0.1 %; Hematocrit (blood only) 33.8 % (40.1-51.0); Hemoglobin 10.4 g/dl (14.0-18.0); Immature Granulocytes # (auto) 0.04 K/uL (0.00-0.02); Immature Granulocytes % (auto) 0.3 %; Lymphocytes # (auto) 1.45 K/uL (1.2-3.4); Lymphocytes % (auto) 9.6 %; Mean Corpuscular Hemoglobin 23.3 pg (25.0-34.0); Mean Corpuscular Hgb Conc 30.8 g/dL (32.0-36.0); Mean Corpuscular Volume 75.8 fL (80.0-100.0); Mean Platelet Volume 9.5 fL (9.4-12.4); Monocytes # (auto) 0.93 K/uL (0.24-0.82); Monocytes % (auto) 6.2 %; Neutrophils % (auto) 83.6 %; Platelet Count 357 K/uL (130-400); RDW Coefficient of Variation 17.1 % (11.5-14.5); RDW Standard Deviation 46.2 fL (36.4-46.3); Red Blood Count 4.46 M/uL (4.63-6.08); White Blood Count 15.06 K/ul (4.8-10.8)
[2022-05-21 07:28] LABS: BUN Creatinine Ratio 13.8 (10-20); Calcium 8.8 mg/dl (8.5-10.1); Creatinine Clr Calc Pharmacy 117.7 ml/min; Est GFR (African American) 115.7 ml/min; Est GFR (Non-African American) 99.9 ml/min; Potassium 3.9 mmol/L (3.5-5.1)
[2022-05-21] MEDS: oxyCODONE HCL IR 5 MG TAB (IMMEDIATE RELEASE) PO PRN ×2 (07:48→22:00)
[2022-05-21] MEDS: dexAMETHasone 6 MG in SYRINGE 0 ML IV SCH (09:29)
--- NOTE | 2022-05-21 09:58 | Orthopedic Progress Note ---
Date of Service May 21, 2022 Assessment & Plan (1) Neurogenic claudication due to lumbar spinal stenosis: Plan: This time continue physical therapy monitor his HU operatively discharge home tomorrow. Admission and Anticipated Discharge Date Admission Date: May 20, 2022 Subjective Back pain controlled leg pain markedly improved Physical Exam Physical Exam: Patient is in a chair at the bedside. Is good strength testing. Appears comfortable. Results & Data ([facility]) Vital Signs (Past 12 Hours) Vital Signs Temp Pulse Resp BP Pulse Ox O2 Del Method 05/21/22 06:59 37.0 C 75 18 134/73 97 Room Air 05/21/22 04:56 36.6 C 83 16 123/70 96 Room Air 05/20/22 23:20 36.6 C 68 16 134/79 98 Room Air
--- NOTE | 2022-05-21 14:55 | Hospitalist Progress Note ---
Date of Service May 21, 2022 Assessment & Plan (1) Neurogenic claudication due to lumbar spinal stenosis: Plan: S/p removal of instrumentation of L3-L5 and decompression & fusion of L5-S1 on 05/[address] Braun. Prolonged surgery time and EBL of 200 mL per operative report. - Acute blood loss anemia - Will order IV Venofer x 1 dose. - Post-operative care per primary team - DVT ppx per primary team (2) Hypertension: Plan: Noted in chart, but not on any meds. BP presently 135/75 which is perfectly acceptable in inpatient setting. - Monitor BP (3) Hypothyroidism: Plan: Most recent TSH is unavailable. No signs/symptoms of hypo-/hyperthyroidism. - Continue home Synthroid 200 mcg - Of note, discussed with patient that Synthroid should be taken in the morning on an empty stomach instead of in the evening with food as this aids absorption. He will talk with his PCP about this. (4) DVT prophylaxis: Plan: SCDs - Chemoprophylaxis per primary team per surgical bleeding risks Given medical stability, Hospital Medicine team will sign off. Please re-consult with any questions or concerns. Thank you for letting us assist in the care of this patient! Admission and Anticipated Discharge Date Admission Date: May 20, 2022 Subjective Doing well today. Has been up with PT and has no needs. Reports no fevers/chills, chest pain, shortness of breath, abdominal pain, nausea, or vomiting. Did not sleep well last night. Physical Exam Constitutional: WD/WN, vitals as above Eyes: EOM intact bilaterally; no conjunctival abnormality ENMT: external ear and nose normal, oropharynx normal Neck: trachea midline, no thyromegaly normal visual inspection Respiratory: normal respiratory effort, lungs clear to auscultation no respiratory distress Cardiovascular: RRR, no murmur, no edema Gastrointestinal (Abdomen): Inspection/Auscultation: abdomen normal to inspection; abdomen not distended Musculoskeletal: no cyanosis or clubbing, extremities motor strength 5/5 Skin: no rashes, warm and dry Neurologic: moves all extremities and awake Psychiatric: Orientation: alert, oriented to person and cooperative Results & Data Results & Data ([facility]) Vital Signs (Past 12 Hours) Vital Signs Temp Pulse Resp BP Pulse Ox O2 Del Method 05/21/22 06:59 37.0 C 75 18 134/73 97 Room Air 05/21/22 04:56 36.6 C 83 16 123/70 96 Room Air PG Care Time/CCT Total # of Minutes Spent Total Time Spent with Patient: Total time spent is greater than 50% in coordination of care (as documented) at patient's floor/unit and/or counseling patient: Coding Level of Care Code 99727 Subseq Hosp Care Lvl 2 Diagnoses Neurogenic claudication due to lumbar spinal stenosis M48.062 Hypertension I10 Hypothyroidism E03.9 DVT prophylaxis Z29.9
[2022-05-21] MEDS ORDERED: IRON SUCROSE 300 MG in SODIUM CHLORIDE 0.9% 250 ML IV ONE (17:00)
[2022-05-21] MEDS: DOCUSATE SODIUM/SENNA 50/8.6MG TAB PO SCH (20:54)
[2022-05-21] MEDS: LEVOTHYROXINE SODIUM 200 MCG TABLET PO SCH (20:54)
[2022-05-21] MEDS: CHOLECALCIFEROL 1,000 UNITS 25 MCG TAB PO SCH (20:55)
[2022-05-21] MEDS: SIMVASTATIN 20 MG TAB PO SCH (20:55)
[2022-05-21] MEDS: TAMSULOSIN HCL 0.4 MG CAP PO SCH (20:55)
[2022-05-22] MEDS: POLYETHYLENE (MIRALAX) 17 GM PACK PO SCH ×2 (05:54→13:32)
[2022-05-22] MEDS: dexAMETHasone 6 MG in SYRINGE 0 ML IV SCH (08:37)
--- NOTE | 2022-05-22 08:53 | Discharge Summary ---
Date of Service May 22, 2022 Admission HPI Per Admitting Provider Patient is a 56-year-old male presents with chronic chest and back and leg pain after failed course of nonoperative care is here for surgical intervention. Discharge Data Consultations 05/20/22 11:15 Consult Hospitalist Routine Procedures Performed Operation Date: 05/20/22 07:45 Actual Procedures p L5-S1 Decompression and Fusion, Spinal Cord Monitor(Not Applicable) - Patrice Braun DO s L3-L5 Hardware Removal,(Not Applicable) - Patrice Braun DO Hospital Course (1) Neurogenic claudication due to lumbar spinal stenosis: Patient is a pleasant 56-year-old male with history physical examination radiographic images consistent with the above-mentioned diagnosis. For this reason is brought to the operating room on 05/20/2022 and undergone a lumbar decompression with removal of his previous hardware from L3-L5 05/20/2022 and undergone a lumbar decompression with removal of his previous hardware from L3- L5 and fusion at L5-S1. He tolerated the procedure well. He left the operating room with HU drain James in place was transferred to the orthopedic floor in stable condition. He was seen by physical therapy postoperative day #1 for ambulation and gait training. Throughout his hospital course his gastrum and supple nontender. His dressings remain clean dry and intact. On postop day #2 is deemed safe for home discharge. His discharge instructions were to change dressing daily till there is no drainage. Once there is no drainage he may begin showering. He is utilize oxycodone or tramadol for pain control. He is to follow-up with our office approximately 2 weeks out from surgery or sooner if he develops any increased pain, fevers, or chills.
[2022-05-22] MEDS: oxyCODONE HCL IR 5 MG TAB (IMMEDIATE RELEASE) PO PRN (13:31)
== END 2022-05-22 15:07 | disposition home or self-care (01) | DRG 454 ==
LOC: ASU 06:20 → 3E 09:56